=== PATIENT | male | born 1965 | race Caucasian/White ===

== ENCOUNTER → 2016-08-17 | Outpatient (CLI) | payer OTHER ==
[2016-08-17 09:36] LABS: BASO % 0.1 %; BASO ABS # 0.01 K/uL (0-0.2); COMPLETE YES; EOS % 1.6 %; HEMATOCRIT 47.2 % (42-52); IG% 0.3 %; LYMPH % 30.9 %; LYMPH ABS # 2.07 K/uL (1.2-3.4); MEAN CELL VOLUME 88.7 fL (80-100); MEAN CORPUSCULAR HEMOGLOBIN 30.8 pg (25-34); MEAN CORPUSCULAR HGB CONC 34.7 g/dl (32-36); MEAN PLATELET VOLUME 10.9 fL (7.4-10.4); MONO % 7.9 %; NEUT % 59.2 %; PLATELET COUNT 186 K/uL (130-400); RED BLOOD COUNT 5.32 M/uL (4.7-6.1)
--- NOTE | 2016-08-17 09:47 | DIAGNOSTIC IMAGING REPORT ---
RIGHT KNEE 3 VIEWS CLINICAL HISTORY: Bilateral knee pain. COMPARISON: None FINDINGS: Alignment of the right knee is anatomic. There is no fracture or joint effusion. Joint spaces are preserved. There is minimal osteophytosis of the right knee. IMPRESSION: 1. No acute fracture. 2. Preserved joint spaces with mild osteophytosis of the right knee. Electronically signed by: Mohamud Dubois M.D. 08/17/2016 9:45 AM Dictated Date/Time: 08/17/2016 9:45 AM
--- NOTE | 2016-08-17 09:48 | DIAGNOSTIC IMAGING REPORT ---
LEFT KNEE 3 VIEWS CLINICAL HISTORY: Bilateral knee pain. COMPARISON: None FINDINGS: Alignment of the left knee is anatomic. There is no joint effusion or fracture. Joint spaces are preserved. No osseous lesion is identified. IMPRESSION: No significant abnormality of the left knee. Electronically signed by: Mohamud Duobis M.D. 08/17/2016 9:46 AM Dictated Date/Time: 08/17/2016 9:45 AM
[2016-08-17 09:54] LABS: ESTIMATED AVERAGE GLUCOSE 131 mg/dl; HA1C FLAG Normal (Normal)
--- NOTE | 2016-08-17 09:57 | DIAGNOSTIC IMAGING REPORT ---
CHEST 2 VIEWS ROUTINE HISTORY: Atypical CHEST PAIN, SEND PT TO LAB NEXT COMPARISON: None. FINDINGS: The lungs are clear. Cardiac silhouette is normal in size. No pleural effusions. No pneumothorax. Mild anterior wedging within a lower thoracic spine vertebral body consistent with an old compression deformity. IMPRESSION: No acute process. Electronically signed by: Remi George M.D. 08/17/2016 9:54 AM Dictated Date/Time: 08/17/2016 9:42 AM
[2016-08-17 10:04] LABS: ALB/GLOB RATIO 1.4 (0.9-2); ALKALINE PHOSPHATASE 75 U/L (45-117); ALT/SGPT 32 U/L (12-78); AMYLASE 44 U/L (25-115); AST/SGOT 17 U/L (15-37); BLOOD UREA NITROGEN 14 mg/dl (7-18); BUN/CREATININE RATIO 12.4 (10-20); CALCIUM 9.3 mg/dl (8.5-10.1); CARBON DIOXIDE 30 mmol/L (21-32); CHLORIDE 106 mmol/L (98-107); CHOLESTEROL 203 mg/dl (0-200); GLUCOSE 141 mg/dl (70-99); POTASSIUM 4.6 mmol/L (3.5-5.1); SODIUM 141 mmol/L (136-145); TRIGLYCERIDES 138 mg/dl (0-150); VERY LOW DENSITY LIPOPROT CALC 28 mg/dl
[2016-08-17 10:08] LABS: CHOLESTEROL/HDL RATIO 5.2; HDL CHOLESTEROL 39 mg/dl; LDL CHOLESTEROL CALCULATED 136 mg/dl
== END | disposition home or self-care (01) ==
LOC: C.RAD 08:36
PROVIDERS: ATTEND Family Medicine
DX: M25.561 Pain in right knee (principal); M25.562 Pain in left knee; M51.34 Other intervertebral disc degeneration, thoracic region; R07.9 Chest pain, unspecified; R10.9 Unspecified abdominal pain; R73.01 Impaired fasting glucose

== ENCOUNTER 2023-12-18 07:12 | Inpatient (IN) ==
--- OUTSIDE RECORDS SUMMARY | 2023-12-18 07:20 | External Medical Summary ---
Author Name Unknown Address Unknown Organization [id number]:[facility]ATORY [facility] [place] - [address] [place] [address] Laboratory Report Ordering Provider Test Date Status HAIR KUHN 12/17/2023 14:54:06 Final Observation Date Value Abnormality Reference (Units ) Status TSH 12/17/2023 14:54:06 0.84 0.27-4.20 (uIU/mL) Final Performing Location [facility] - [address] [place] [address]
--- OUTSIDE RECORDS SUMMARY | 2023-12-18 07:20 | External Medical Summary | Summary of Care ---
Author Name Unknown Organization [facility] Address [address] [place] [address] Phone [phone] Care Team Providers Care Truck Technician Name Role Phone Marcelo Diaz MD Primary Care Provider [phone] Reason for Visit * Reason Comments Outpatient Testing Encounter Details Date Type Department Care Team (Late st Contact Info) Description 12/17/2023 3:00 PM EDT Laboratory Laboratory, [facility] [address] [place] [address] [facility] [address], [place] [id number] Blurred vision; Generalized weakness; Malaise and fatigue; Prediabetes; COVID-19 Allergies No known active allergiesdocumented as of this encounter (statuses as of 12/17/2023) Medications Medication Sig Dispensed Refills Start Date End Date Status oxyCODONE HCl 10 MG Tablet Take 1 Tablet by mouth. Active pantoprazole (PROTONIX) 20 MG TBEC Take by mouth. Active Gabapentin 600 MG Oral Tablet (Neurontin) Take 0.5 Tablets by mouth in the morning and 0.5 Tablets at noon and 0.5 Tablets before bedtime. 11/08/2019 Active Diclofenac Sodium 1 % External Gel apply 2 grams topically to affected area four times a day as directed 09/24/2020 Active Meloxicam 15 MG Oral Tablet Take 1 Tablet by mouth in the morning. for pain.. 30 Tablet 1 04/02/2023 Active documented as of this encounter (statuses as of 12/17/2023) Active Problems Problem Noted Date Diagnosed Date Change in stool 04/20/2017 Complex tear of medial meniscus of left knee 05/2014 Prediabetes 05/10/2014 Fissure, anal Bilateral knee pain Degenerative joint disease of low back documented as of this encounter (statuses as of 12/17/2023) Social History Tobacco Use Types Packs/Day Years Used Date Smoking Tobacco: Every Day Cigarettes 1 34 Started: 09/11/1979; Last attempted to quit: 09/10/2013 Passive Smoke Exposure: Current Smokeless Tobacco: Never Comments:began at age 17 Alcohol Use Standard Drinks/Week Comments Yes 0 (1 standard drink = 0.6 oz pur e alcohol) one or 2 a month PHQ-2 Answer Date Recorded PHQ Adult Total Score 9 11/04/2020 Hunger Vital Sign Answer Date Recorded Worried About Running Out of Food in the Last Ye ar Never true 07/25/2019 Ran Out of Food in the Last Year Never true 07/25/2019 Utilities Answer Date Recorded Do you have trouble paying y our heating, water, or electric bill? (Adult - for ages 18 years and over) Not on file 10/26/2023 Is your family able to pay t he heat, water, or electric bill? (Household - for ages 0-17 years) Not on file 10/26/2023 Does your family have access to good internet? (Household - for ages 0-17 years) Not on file 10/26/2023 Social Connections Answer Date Recorded How often do you feel lonely or isolated from those around you? (Adult - for ages 18 years and over) Not on file 10/26/2023 Sex and Gender Information Value Date Recorded Sex Assigned at Not on file Gender Identity Not on file Sexual Orientation Not on file Job Start Date Occupation Industry Not on file Not on file Not on file documented as of this encounter Plan of Treatment Pending Results Name Type Priority Associated Diagnoses Date /Time HEMOGLOBIN A1C Lab Routine Blurred vision Generalized weakness Malaise and fatigue Prediabetes 12/17/2023 2:54 PM EDT TSH WITH FREE T4 IF INDICATED Lab Routine Blurred vision Generalized weakness Malaise and fatigue 12/17/2023 2:54 PM EDT COMPREHENSIVE METABOLIC PANEL Lab Routine Blurred vision Generalized weakness COVID-19 Malaise and fatigue 12/17/2023 2:54 PM EDT MAGNESIUM Lab Routine Blurred vision Generalized weakness COVID-19 Malaise and fatigue 12/17/2023 2:54 PM EDT Scheduled Procedures Name Priority Associated Diagnoses Date/Ti me COLONOSCOPY FLEXIBLE PROXIMA L DIAGNOSTIC Recall Special screening for malignant neoplasms, colon Health Maintenance Due Date Last Done Comments Lipid Panel 1967 Pneumococcal Vaccine: Pediatrics (0 to 5 Years) and At-Risk Patients (6 to 64 Years) (1 of 2 - PCV) 09/19/1973 HIV Screening 09/19/1982 Hepatitis C Screening 09/19/1985 Hepatitis B Vaccine (1 of 3 - 19+ 3-dose series) 09/19/1986 Cologuard 09/19/2012 Fecal Occult Blood Test 09/19/2012 Sigmoidoscopy 09/19/2012 HbA1c 12/07/2015 12/06/2014 Lung Cancer Screening 09/19/2017 Zoster Vaccines (1 of 2) 09/19/2017 Depression Screening 11/04/2021 11/04/2020 COVID-19 Vaccine (1 - 2022-2 4 season) 2023 Influenza Vaccine (FLU shot) (#1) 2024 DTaP,Tdap,and Td Vaccines (2 - Td or Tdap) 11/26/2027 11/25/2017 (Declined) Colonoscopy 02/23/2029 02/23/2019 Colorectal Cancer Screening 02/23/2029 HPV (Gardasil) Vaccine Aged Out No lo nger eligible based on patient's age to complete this topic MENINGOCOCCAL (MENACTRA/MENVEO) Aged Out No longer eligible b ased on patient's age to complete this topic documented as of this encounter Medical Devices Not on filedocumented as of this encounter Visit Diagnoses Diagnosis Blurred vision Other specified visual disturbances Generalized weakness Other malaise and fatigue Malaise and fatigue Other malaise and fatigue Prediabetes Other abnormal glucose COVID-19 documented in this encounter Care Teams Truck Technician Relationship Specialty Start Date End Date Marcelo Diaz MD [address], [place] [id number] PCP - General Family Medicine 03/31/23 documented as of this encounter
--- OUTSIDE RECORDS SUMMARY | 2023-12-18 07:20 | External Medical Summary ---
Author Name Unknown Address Unknown Organization [id number]:[facility] [place] [address] [place] [address] Laboratory Report Ordering Provider Test Date Status HAIR KUHN 12/17/2023 14:54:06 Final Observation Date Value Abnormality Reference (Units ) Status HbA1C 12/17/2023 14:54:06 16.3 Above high normal 4. 0-5.6 (%) Final The use of HbA1c to monitor glycemic status is based on normal hemoglobin and HbA composition. This test should not be used in patients with abnormal hemoglobin that affects the half life of the red blood cell or the in vivo glycation rates. Glucose, estimated average 12/17/2023 14:54:06 421 Above high normal <126 (mg/dL) Tony faulkner Performing Location [facility] [place] [address] [place] [address]
--- OUTSIDE RECORDS SUMMARY | 2023-12-18 07:20 | External Medical Summary | Summary of Care ---
Author Name Unknown Organization [facility] Address [address] [facility] [place] [address] Phone [phone] Care Team Providers Care Radiation Control Specialist Name Role Phone Marcelo Diaz MD Primary Care Provider [phone] Reason for Visit * Reason Comments Acute Pt states that he escalante d a severe fatigue, COVID+ 2 weeks ago via home test, dry mouth, low energy, urinating frequently with increased thirst. Pt states that has been testing positive, blurred vision. Encounter Details Date Type Department Care Team (Late st Contact Info) Description 12/17/2023 2:20 PM EDT Office Visit [facility] [address] [place] [address] Lakisha Bonilla PAAjC [address], [place] [phone] Blurred vision*; Generalized weakness; COVID-19; Malaise and fatigue; Prediabetes Allergies No known active allergiesdocumented as of [...] Passive Smoke Exposure: Current Smokeless Tobacco: Never Tobacco Cessation:Ready to Q uit: Not Asked; Counseling Given: Not Answered Comments:began at age 17 Alcohol Use Standard [...] on file documented as of this encounter Last Filed Vital Signs Vital Sign Reading Time Taken Comments Blood Pressure 132/88 12/17/2023 2:17 PM EDT Pulse 118 12/17/2023 2:17 PM EDT Temperature 36.7 C (98.1 F) 12/17/2023 2:17 PM ED T Respiratory Rate 18 12/17/2023 2:17 PM EDT Oxygen Saturation 96% 12/17/2023 2:17 PM EDT Inhaled Oxygen Concentration - - Weight 104.1 kg (229 lb 6.4 oz) 12/17/2023 2:17 PM EDT Height 188 cm (6' 2") 12/17/2023 2:17 PM EDT Body Mass Index 29.45 12/17/2023 2:17 PM EDT documented in this encounter Progress Notes * Lakisha Bonilla PA-C - 12/17/2023 2:28 PM EDT Images from the original note were not included. History of Present Illness Remi Connelly is a 58 year old male that presents for Acute (Pt states that he had a severe fatigue, COVID+ 2 weeks ago via home test, dry mouth, low energy, urinating frequently with increased thirst. Pt states that has been testing positive, blurred vision. ) Having issues with how he feels A little over 2 weeks ago he started to be really tired He tested positive for covid this week Vision changed - now needs readers Tired Dry mouth Has a back injury - on gabapentin and oxycodone Woke with cramps in legs He was told he might be dehydrated - drinking water and gatorade This has made him have to urinate all the time. He was prediabetic a few years back Feels weak Lost 20 lbs in 2 weeks. Physical Exam Vitals: 12/17/23 1417 Temp: 36.7 C (98.1 F) Pulse: 118 Resp: 18 SpO2: 96% BP: 132/88 BMI: 29.44 BP Readings from Last 3 Encounters: 12/17/23 132/88 04/02/23 132/80 03/23/23 (!) 173/111 Wt Readings from Last 3 Encounters: 12/17/23 104.1 kg (229 lb 6.4 oz) 04/02/23 112 kg (247 lb) 11/04/20 113.3 kg (249 lb 12.8 oz) BMI Readings from Last 3 Encounters: 12/17/23 29.45 kg/m 04/02/23 31.29 kg/m 11/04/20 31.64 kg/m Ht Readings from Last 3 Encounters: 12/17/23 1.88 m (6' 2") 11/04/20 1.892 m (6' 2.5") 10/03/20 1.892 m (6' 2.5") General: alert, healthy, and no distress Head: Normocephalic, No masses, lesions, tenderness or abnormalities Eye Exam: PERRLA, extraocular movements intact, conjunctiva are pink and non- injected, sclera clear Ears: External ears normal, Canals clear, TM's Normal Nose: no mucosal erythema, no mucosal edema, no purulent discharge Oropharynx: no exudate, no erythema, lips, buccal mucosa, and tongue normal, and mucous membranes are moist Neck: supple, no adenopathy, no bruits, thyroid normal size, non-tender, without nodularity Heart: regular rate & rhythm, no murmur, and no gallops, s1 and s2 Lungs: chest symmetric with normal AP diameter, no chest deformities noted, no chest wall tenderness, lungs clear to auscultation Extremities: less than 2 second capillary refill, no joint deformities, effusion, or inflammation Skin: skin color, texture, turgor are normal, no rashes or significant lesions Assessment and Plan Blurred vision (Primary) - HEMOGLOBIN A1C; Future; Expected date: 12/17/2023 - TSH WITH FREE T4 IF INDICATED; Future; Expected date: 12/17/2023 - COMPREHENSIVE METABOLIC PANEL; Future; Expected date: 12/17/2023 - MAGNESIUM; Future; Expected date: 12/17/2023 Generalized weakness - HEMOGLOBIN A1C; Future; Expected date: 12/17/2023 - TSH WITH FREE T4 IF INDICATED; Future; Expected date: 12/17/2023 - COMPREHENSIVE METABOLIC PANEL; Future; Expected date: 12/17/2023 - MAGNESIUM; Future; Expected date: 12/17/2023 COVID-19 - supportive care, unclear if this is new or hje has been sick for the entire 2 weeks. - COMPREHENSIVE METABOLIC PANEL; Future; Expected date: 12/17/2023 - MAGNESIUM; Future; Expected date: 12/17/2023 Malaise and fatigue - HEMOGLOBIN A1C; Future; Expected date: 12/17/2023 - TSH WITH FREE T4 IF INDICATED; Future; Expected date: 12/17/2023 - COMPREHENSIVE METABOLIC PANEL; Future; Expected date: 12/17/2023 - MAGNESIUM; Future; Expected date: 12/17/2023 Prediabetes - HEMOGLOBIN A1C; Future; Expected date: 12/17/2023 Concern is for mare diabetes Patient has needle phobia so will get labs rather than finger stick - if finger stick was + he would need labs anyway Wrap-Up Time: I spent a total of 20-29 minutes (exact time 23 mins) on the date of service in preparation, delivery, and documentation of the care provided to Remi Connelly excluding any time spent in the performance of separately billed services. Lakisha Bonilla PA-C 12/17/2023 2:42 PM documented in this encounter Nursing Notes * Florence Holley LPN - 12/17/2023 2:17 PM EDT Remi Connelly is a 58 year old male who presents today for Chief Complaint Patient presents with Acute Pt states that he had a severe fatigue, COVID+ 2 weeks ago via home test, dry mouth, low energy, urinating frequently with increased thirst. Pt states that has been testing positive, blurred vision. documented in this encounter Plan of Treatment Pending Results [...] and fatigue 12/17/2023 2:54 PM EDT Scheduled Orders Name Type Priority Associated Diagnoses Orde r Schedule HEMOGLOBIN A1C Lab Routine Blurred vision Generalized weakness Malaise and fatigue Prediabetes Expected: 12/17/2023 (Approximate), Expires: 12/16/2024 TSH WITH FREE T4 IF INDICATED Lab Routine Blurred vision Generalized weakness Malaise and fatigue Expected: 12/17/2023 (Approximate), Expires: 12/16/2024 COMPREHENSIVE METABOLIC PANEL Lab Routine Blurred vision Generalized weakness COVID-19 Malaise and fatigue Expected: 12/17/2023 (Approximate), Expires: 12/16/2024 MAGNESIUM Lab Routine Blurred vision Generalized weakness COVID-19 Malaise and fatigue Expected: 12/17/2023 (Approximate), Expires: 12/16/2024 Scheduled Procedures Name Priority Associated Diagnoses Date/Ti [...] of this encounter Visit Diagnoses Diagnosis Blurred vision- Primary Other specified visual disturbances Generalized weakness Other malaise and fatigue COVID-19 Malaise and fatigue Other malaise and fatigue Prediabetes Other abnormal glucose documented in this encounter Care Teams Radiation Control Specialist Relationship Specialty Start Date End Date Marcelo Diaz MD [address] [address] PCP - General Family Medicine 03/31/23 documented as of this encounter
--- OUTSIDE RECORDS SUMMARY | 2023-12-18 07:20 | External Medical Summary | Summary of Care ---
Author Name Unknown Organization [facility] Address [address] [facility] [address] Phone [phone] Care Team Providers Care Lens Cutter Name Role Phone Marcelo Diaz MD Primary Care Provider [phone] Encounter Details Date Type Department Care Team (Late st Contact Info) Description 08/20/2023 Orders Only Radiology [facility] [facility] [address] [facility] [place] [address] Requisition, External Radiology [address] [facility] [place] [address] Spinal stenosis of lumbar region with neurogenic claudication*; Vertebrogenic low back pain Allergies No known active allergiesdocumented as of this encounter (statuses as of 08/20/2023) Medications Medication Sig Dispensed Refills Start Date End Date Status oxyCODONE HCl 10 MG Tablet Take 1 Tablet by mouth. 0 Active pantoprazole (PROTONIX) 20 MG TBEC Take by mouth. 0 Active Gabapentin 600 MG Oral Tablet (Neurontin) Take 0.5 Tablets by mouth in the morning and 0.5 Tablets at noon and 0.5 Tablets before bedtime. 0 11/08/2019 Active Diclofenac Sodium 1 % External Gel apply 2 grams topically to affected area four times a day as directed 0 09/24/2020 Active Meloxicam 15 MG Oral Tablet Take 1 Tablet by mouth in the morning. for pain.. 30 Tablet 1 04/02/2023 Active documented as of this encounter (statuses as of 08/20/2023) Active Problems Problem Noted Date Diagnosed Date Change in stool 04/20/2017 Complex tear of medial meniscus of left knee 05/2014 Prediabetes 05/10/2014 Fissure, anal Bilateral knee pain Degenerative joint disease of low back documented as of this encounter (statuses as of 08/20/2023) Social History Tobacco Use Types Packs/Day Years [...] in the Last Year Never true 07/25/2019 Sex and Gender Information Value Date Recorded Sex Assigned at Not on file Gender Identity Not on file Sexual Orientation Not on file Job Start Date Occupation Industry Not on file Not on file Not on file documented as of this encounter Plan of Treatment Pending Results Name Type Priority Associated Diagnoses Date /Time XR LS SPINE FLEX AND EXT VIEWS ONLY Medical Imaging Routine Spinal stenosis of lumbar region with neurogenic claudication Vertebrogenic low back pain 08/20/2023 11:17 AM EDT Scheduled Procedures Name Priority Associated Diagnoses Date/Ti me COLONOSCOPY FLEXIBLE PROXIMA L DIAGNOSTIC Recall Special screening for malignant neoplasms, colon Health Maintenance Due Date Last Done Comments Lipid Panel 1965 Pneumococcal Vaccine: Pediatrics (0 to 5 Years) and At-Risk Patients (6 to 64 Years) (1 of 2 - PCV) 09/19/1973 HIV Screening 09/19/1982 Hepatitis C Screening 09/19/1985 Hepatitis B (1 of 3 - 19+ 3-dose series) 09/19/1986 Cologuard 09/19/2012 Fecal Occult Blood Test 09/19/2012 Sigmoidoscopy 09/19/2012 HbA1c 12/07/2015 12/06/2014 LUNG CANCER SCREENING - USE SMARTSET [id number] 09/19/2017 Zoster Vaccines (1 of 2) 09/19/2017 Depression Screening 11/04/2021 11/04/2020 COVID-19 Vaccine (1 - 2022-2 4 season) 2023 Influenza Vaccine (FLU shot) (Season Ended) 2024 DTaP,Tdap,and Td Vaccines (2 - Td or Tdap) 11/26/2027 11/25/2017 (Declined) Colonoscopy 02/23/2029 02/23/2019 Colorectal Cancer Screening 02/23/2029 GARDASIL-HPV IMMUNIZATION SERIES Aged Out No longer eligible b ased on patient's age to complete this topic MENINGOCOCCAL (MENACTRA/MENVEO) Aged Out No longer eligible b ased on patient's age to complete this topic documented as of this encounter Medical Devices Not on filedocumented as of this encounter Visit Diagnoses Diagnosis Spinal stenosis of lumbar region with neurogenic claudication- Primary Spinal stenosis, lumbar region, with neurogenic claudication Vertebrogenic low back pain documented in this encounter Care Teams Lens Cutter Relationship Specialty Start Date End Date Marcelo Diaz MD [address] [place] [address] PCP - General Family Medicine 03/31/23 documented as of this encounter
--- OUTSIDE RECORDS SUMMARY | 2023-12-18 07:20 | External Medical Summary ---
Author Name Unknown Address Unknown Organization K01:[facility] - [address] [place] [address] Laboratory Report Ordering Provider Test Date Status HAIR KUHN 12/17/2023 14:54:06 Final Observation Date Value Abnormality Reference (Units ) Status Magnesium 12/17/2023 14:54:06 3.0 Above high normal 1. 5-2.6 (mg/dL) Final Performing Location [facility] - [address] [place] [address]
--- OUTSIDE RECORDS SUMMARY | 2023-12-18 07:20 | External Medical Summary ---
Author Name Unknown Address Unknown Organization [id number]:[facility]ORY [facility] [place] [address] [place] [address] Laboratory Report Ordering Provider Test Date Status HAIR KUHN 12/17/2023 14:54:06 Final Observation Date Value Abnormality Reference (Units ) Status BUN 12/17/2023 14:54:06 35 Above high normal 6-20 (mg/dL) Final Creatinine 12/17/2023 14:54:06 1.7 Above high normal 0.6-1.2 (mg/dL) Final Glomerular filtration rate/1.73 sq M.predicted [Volume Rate/Area] in Serum, Plasma or Blood by Creatinine-based formula (CKD-EPI) 12/17/2023 14:54:06 45 Below low normal >=60 (mL/min) Final eGFR is calculated based on the CKD-EPI 2020 equation. Sodium 12/17/2023 14:54:06 134 Below low normal 135 -146 (mmol/L) Final Potassium 12/17/2023 14:54:06 5.5 Above high normal 3. 5-5.1 (mmol/L) Final Cl 12/17/2023 14:54:06 87 Below low normal 98- 107 (mmol/L) Final CO2 12/17/2023 14:54:06 23 22-32 (mmo l/L) Final Anion gap 12/17/2023 14:54:06 24 Above high normal 7- 15 (mmol/L) Final Glucose 12/17/2023 14:54:06 1322 Above upper panic li mits 70-120 (mg/dL) Final Results rechecked. Albumin 12/17/2023 14:54:06 4.9 3.8-5.0 (g /dL) Final AST (Aspartate aminotransferase) 12/17/2023 14:54:06 29 10-50 (U/L) Fin al Alk Phos 12/17/2023 14:54:06 141 Above high normal 35 -130 (U/L) Final Bilirubin, Total 12/17/2023 14:54:06 0.7 <=1 .2 (mg/dL) Final Calcium 12/17/2023 14:54:06 10.8 Above high normal 8. 4-10.2 (mg/dL) Final Protein 12/17/2023 14:54:06 7.4 6.0-8.3 (g /dL) Final ALT (Alanine aminotransferase) 12/17/2023 14:54:06 55 Above high normal 10-50 (U/L) Final Performing Location LABORATORY [facility] [place] - [address] [facility] [address]
[2023-12-18] MEDS: SODIUM CHLORIDE 0.9% 1,000 ML IV STA (07:30)
--- NOTE | 2023-12-18 08:17 | XRay Report ---
XR chest 1V portable CLINICAL HISTORY: weakness, cough x several wks COMPARISON STUDY: Chest radiograph August 17, 2016. FINDINGS: Lung volumes are normal. Lungs are clear. There is no pneumothorax or pleural effusion. Car diac size is normal. Mediastinal contours are normal. There is no evidence for pulmonary edema. IMPRESSION: No acute cardiopulmonary findings. ACT 112: Negative or not required by law. Electronically signed by: Mohamud Dubois M.D. 12/18/2023 8:16 AM
[2023-12-18 08:20] LABS: Appearance Urine Clear (Clear); Bilirubin Urine Negative (Negative); Blood Urine Negative (Negative); Color Urine Yellow; Glucose Urine UA 3+ (Negative); Ketones Urine 1+ (Negative); Leukocyte Esterase Urine Negative (Negative); Nitrite Urine Negative (Negative); Protein Urine Negative (Negative); Specific Gravity Urine 1.037 (1.000-1.030); Urobilinogen Urine Negative (Negative)
[2023-12-18] MEDS: dilTIAZem HCl 5 MG/ML 5 ML VIAL IV STA (08:30)
[2023-12-18 08:32] LABS: Basophils # (auto) 0.03 K/uL (0.00-0.20); Basophils % (auto) 0.2 %; Eosinophils # (auto) 0.04 K/uL (0.00-0.50); Eosinophils % (auto) 0.3 %; Hematocrit (blood only) 54.4 % (42.0-52.0); Hemoglobin 17.2 g/dl (14.0-18.0); Immature Granulocytes # (auto) 0.05 K/uL (0.01-0.20); Immature Granulocytes % (auto) 0.4 %; Lymphocytes # (auto) 2.89 K/uL (1.20-3.40); Lymphocytes % (auto) 22.2 %; Mean Corpuscular Hemoglobin 29.4 pg (25.0-34.0); Mean Corpuscular Hgb Conc 31.6 g/dL (32.0-36.0); Monocytes # (auto) 0.71 K/uL (0.11-0.59); Monocytes % (auto) 5.4 %; Neutrophils # (auto) 9.31 K/uL (1.40-6.50); Neutrophils % (auto) 71.5 %; Platelet Count 206 K/uL (130-400); RDW Coefficient of Variation 12.4 % (11.5-14.5); RDW Standard Deviation 42.5 fL (36.4-46.3); Red Blood Count 5.85 M/uL (4.70-6.10); White Blood Count 13.03 K/ul (4.8-10.8)
[2023-12-18 08:51] LABS: Estimated Average Glucose 395 mg/dl; Hemoglobin A1C 15.4 % (4.5-5.6)
[2023-12-18] MEDS: STAT IV Infusion **Titration per Protocol STA ×2 (08:53→09:59)
--- NOTE | 2023-12-18 08:53 | Emergency Department Note ---
ED Provider Note History of Present Illness Chief Complaint: Illness Stated Complaint: COVID+,NEWLY DIAGNOSED WITH DIABETES Time Seen by Provider: 12/18/23 07:23 58-year-old male who presents to the emergency department with his for evaluation of abnormal lab work. The patient reports that he has been feeling sick now for the past month. With progressively worsening symptoms, he did follow-up with his PCP yesterday, and had lab work ordered and drawn. He was contacted this morning because he had a BSG of 1000. He was instructed to come to the emergency department for further evaluation. The patient reports notable increasing thirst and frequent urination. His reports that [place], and had to stop every few minutes because he had to urinate so much. Patient reports fatigue as well. He denies any chest pain, shortness of breath, nausea or vomiting. The patient reports that with his symptoms, he did a home COVID test that was positive 5 days ago. Home Medications Medication Instructions Recorded Confirmed Type gabapentin 600 mg tablet 300 mg PO HS 12/18/23 12/18/23 History oxycodone 15 mg tablet 15 mg PO QID PRN Pain 12/18/23 12/18/23 History Allergies Allergy/AdvReac Type Severity Reaction Status Date / Time No Known Allergies Allergy Unknown Verified 12/18/23 09:37 Past Med/Surg History Problem List (Updated 12/18/23 @ 10:08 by Poncho Ballesteros) Elevated troponin I level (Acute) Acute kidney injury (Acute) New onset type 2 diabetes mellitus (Acute) Atrial fibrillation with rapid ventricular response (Acute) Medical History Chronic back pain Surgical History No significant past surgical history Social History (Updated 12/18/23 @ 08:48 by Poncho Ballesteros) Smoking Status: Never smoker Second Hand Exposure: No; Do You Dip or Chew Tobacco: No; Tobacco Cessation Education Requested by Patient: No Hx Alcohol Use: No Hx Substance Use: No Preferred Language: Slovenian Communication Ability: Effective Pension Administrator Required: No Beliefs That Will Affect Care: None marital status: Current Living Situation: Spouse current occupational status: employed Other Information That Helps Us Care for You: No Feels Safe at Home: Yes Safety Concerns: Feels Safe At This Time Assistive Devices: None Physical Exam Vital Signs Vital Signs - 24 hr 12/18/23 07:15 12/18/23 07:40 12/18/23 08:03 Temperature 36.1 C L Temperature Source Temporal Artery Scan Pulse Rate 108 H 194 H 167 H Pulse Rhythm Respiratory Rate 18 18 Blood Pressure 135/86 150/99 H Blood Pressure Mean 102 108 Pulse Oximetry 95 93 Oxygen Delivery Method Sepsis Recent Fever Within 48 Hours No Sepsis New/Unexplained Change in Mental Status N/A Sepsis Action Taken by Nursing No Action Required 12/18/23 08:05 12/18/23 08:30 12/18/23 08:40 Temperature Temperature Source Pulse Rate 148 H 146 H 127 H Pulse Rhythm Irregular Respiratory Rate 20 15 12 Blood Pressure 121/95 131/98 Blood Pressure Mean 103 107 Pulse Oximetry 93 90 Oxygen Delivery Method Room Air Sepsis Recent Fever Within 48 Hours Sepsis New/Unexplained Change in Mental Status Sepsis Action Taken by Nursing 12/18/23 08:45 12/18/23 08:55 12/18/23 09:30 Temperature Temperature Source Pulse Rate 146 H 144 H 143 H Pulse Rhythm Respiratory Rate 16 12 20 Blood Pressure 125/103 H 120/95 125/93 Blood Pressure Mean 119 109 116 Pulse Oximetry 96 98 Oxygen Delivery Method Sepsis Recent Fever Within 48 Hours Sepsis New/Unexplained Change in Mental Status Sepsis Action Taken by Nursing 12/18/23 09:45 12/18/23 09:50 Temperature Temperature Source Pulse Rate 133 H 132 H Pulse Rhythm Respiratory Rate 18 15 Blood Pressure 112/94 115/94 Blood Pressure Mean 95 97 Pulse Oximetry 94 94 Oxygen Delivery Method Sepsis Recent Fever Within 48 Hours Sepsis New/Unexplained Change in Mental Status Sepsis Action Taken by Nursing CONSTITUTIONAL: Healthy and well nourished. Patient appears in moderate discomfort. HEENT: Normocephalic, atraumatic. Pupils equal, round and reactive. Patient appears dehydrated. No scleral icterus or conjunctival injection. NECK: Full active range of motion without discomfort. LYMPHATICS: No cervical chain adenopathy. RESPIRATORY: Clear to auscultation bilaterally with no wheezing, crackles, rhonchi or stridor. CARDIOVASCULAR: Irregular rate and rhythm with no murmurs, rubs or gallops. GASTROINTESTINAL: Bowel sounds present in all quadrants. MUSCULOSKELETAL: Full range of motion of all joints without discomfort. INTEGUMENTARY: No rash or other significant dermatologic conditions noted. HEMATOLOGIC: No ecchymosis or petechiae. PSYCHIATRIC: Positive affect. NEUROLOGIC: No focal neurologic deficits noted. Course Course Patient history and physical exam were performed. Nurses notes reviewed. Vital signs were reviewed from triage, showing an elevated heart rate of 148. Patient was not hypotensive, hypoxic or febrile. Radial pulse was palpated, was irregular and seem to be about half the rate of what the monitor was showing. IV access was established, and labs are drawn. The patient was hydrated with a liter normal saline. An ECG was performed and repeated, showing atrial fibrillation with rapid ventricular response around 150 bpm. Patient was placed on monitoring engineer. I did review ECG studies with Dr. Poole, ED attending physician, who recommended administering IV Cardizem bolus with drip. Orders were entered. A portable chest x-ray was performed and was normal. Further review of labs shows an elevated white count of over 13,000 with no neutrophilic shift or bandemia. Urinalysis shows 3+ glucosuria, 1+ ketonuria, and no hematuria or signs of infection. CMP was delayed, but eventually resulted showing random glucose of 1030. Lactate is also elevated at 3.5. Hemoglobin A1c is 15.4. The patient is also hypomagnesemic, hypocalcemic, and also has an elevated AST of 41. Troponin is also mildly elevated at 28. CO2 is normal, and the patient does not have any significant ketonuria. A Bio[employer] PCR respiratory panel was negative. Dr. Poole recommended IV insulin bolus and drip, and consultation with the hospitalist service. Patient was advised of his findings. The case was then further discussed with our Server Service Assistant, as well as the [facility] hospitalist team (Dr. Mims) for admission. Please see hospitalist dictations for further treatment and final disposition. Administered Medications Diltiazem HCl (Diltiazem Hcl 180 Mg Capcr) 180 mg PO QAM [facility] Stop: 01/17/24 14:29 Last Admin: 12/18/23 15:24 Dose: 180 mg Documented By: MUSHTAQ Diltiazem HCl 125 mg/ Dextrose 125 mls @ 10 mls/hr IV .[id number] BUSHRA; Protocol Stop: 01/17/24 08:29 Last Titration: 12/18/23 15:30 Dose: 10 mg/hr, 10 mls/hr Documented By: MUSHTAQ Co-signed By: EMILY Titration: 12/18/23 10:39 Dose: 15 mg/hr, 15 mls/hr Documented By: HENRY Co-signed By: JIN Titration: 12/18/23 10:02 Dose: 10 mg/hr, 10 mls/hr Documented By: HENRY Co-signed By: JIN Admin: 12/18/23 08:54 Dose: 5 mg/hr, 5 mls/hr Documented By: HENRY Co-signed By: JIN Insulin Human Regular 250 (units/ Sodium Chloride) 250 mls @ 9.4 mls/hr IV .Q24H BUSHRA; Protocol Stop: 01/17/24 09:14 Last Titration: 12/18/23 16:40 Dose: 9.4 units/hr, 9.4 mls/hr Documented By: MUSHTAQ Co-signed By: EMERSON Titration: 12/18/23 15:28 Dose: 9.4 units/hr, 9.4 mls/hr Documented By: MUSHTAQ Co-signed By: EMERSON Titration: 12/18/23 14:30 Dose: 11.8 units/hr, 11.8 mls/hr Documented By: MUSHTAQ Co-signed By: EMERSON Titration: 12/18/23 13:30 Dose: 11.8 units/hr, 11.8 mls/hr Documented By: MUSHTAQ Co-signed By: EMERSON Admin: 12/18/23 09:58 Dose: 9.8 units/hr, 9.8 mls/hr Documented By: JIN Co-signed By: HENRY Heparin Sodium/Dextrose (Heparin Sodium/Dextrose) 25,000 units in 500 mls @ 20 mls/hr IV .Q24H BUSHRA; Protocol Stop: 12/18/23 19:00 Last Admin: 12/18/23 12:37 Dose: 1,000 units/hr, 20 mls/hr Documented By: MUSHTAQ Co-signed By: EMERSON Insulin Aspart (Insulin Aspart Per Unit Charge) 0 units SC ACHS [facility] Stop: 01/17/24 16:29 Last Admin: 12/18/23 16:40 Dose: Not Given Documented By: MUSHTAQ Oxycodone HCl (Oxycodone Hcl Ir 5 Mg Tab (Immediate Release)) 15 mg PO QID PRN PRN Reason: Pain Stop: 01/01/24 13:12 Last Admin: 12/18/23 15:03 Dose: 15 mg Documented By: MUSHTAQ Discontinued Medications Diltiazem HCl (Diltiazem Hcl 5 Mg/Ml 5 Ml Vial) 15 mg IV NOW STA Stop: 12/18/23 08:24 Last Admin: 12/18/23 08:30 Dose: 15 mg Documented By: HENRY Co-signed By: JIN Heparin Sodium/Dextrose (Heparin Iv Adult Wt-Based Low-Dose *No* Initial Bolus Protocol) 1 each IV Q15M BUSHRA; Protocol Stop: 12/18/23 11:45 Last Admin: 12/18/23 12:42 Dose: Not Given Documented By: Admin: 12/18/23 12:42 Dose: Not Given Documented By: Admin: 12/18/23 12:42 Dose: Not Given Documented By: Admin: 12/18/23 12:42 Dose: Not Given Documented By: Admin: 12/18/23 12:37 Dose: Not Given Documented By: MUSHTAQ Heparin Sodium/Dextrose (Heparin 26884 Unit/500 Ml D5w) Confirm Administered Dose 25,000 units IV .STK-MED ONE Stop: 12/18/23 11:31 Last Admin: 12/18/23 12:38 Dose: Not Given Documented By: MUSHTAQ Sodium Chloride (Nss) 1,000 mls @ 999 mls/hr IV .Q1H1M STA Stop: 12/18/23 08:38 Last Infusion: 12/18/23 08:36 Dose: Infused Documented By: Admin: 12/18/23 07:30 Dose: 999 mls/hr Documented By: HENRY Sodium Chloride (Nss) 1,000 mls @ 75 mls/hr IV .[id number] BUSHAR Stop: 01/17/24 12:22 Last Infusion: 12/18/23 15:30 Dose: Infused Documented By: Admin: 12/18/23 12:37 Dose: 75 mls/hr Documented By: MUSHTAQ Sodium Chloride (1/2 Nss) 1,000 mls @ 100 mls/hr IV .Q10H BUSHRA Stop: 01/17/24 14:44 Last Admin: 12/18/23 15:33 Dose: 100 mls/hr Documented By: MUSHTAQ Insulin Human Regular (Novolin-R Bolus From Bag) 10 units IV ONE ONE Stop: 12/18/23 09:46 Last Admin: 12/18/23 09:59 Dose: 10 units Documented By: JIN Co-signed By: HENRY De La Garza (Stat Iv Infusion Titration Per Protocol) 1 each N/A NOW STA Stop: 12/18/23 08:24 Last Admin: 12/18/23 08:53 Dose: Not Given Documented By: HENRY De La Garza (Dka Goal Range 150-250 Mg/Dl) 1 each N/A ONE ONE Stop: 12/18/23 09:11 Last Admin: 12/18/23 09:59 Dose: Not Given Documented By: JIN De La Garza (Stat Iv Infusion Titration Per Protocol) 1 each N/A NOW STA Stop: 12/18/23 09:11 Last Admin: 12/18/23 09:59 Dose: Not Given Documented By: JIN Medical Decision Making Medical Records Attestation: I reviewed the patient's medical records. Home Medications was personally reviewed by me Laboratory Data Attestation: I reviewed the patient's lab results. 12/18/23 07:50 12/18/23 15:16 Lab Results 12/18/23 12/18/23 12/18/23 Range/Units 07:50 07:55 08:35 WBC 13.03 H (4.8-10.8) K/ul RBC 5.85 (4.70-6.10) M/uL Hgb 17.2 (14.0-18.0) g/dl Hct 54.4 H (42.0-52.0) % MCV 93.0 (80.0-100.0) fL MCH 29.4 (25.0-34.0) pg MCHC 31.6 L (32.0-36.0) g/dL RDW Std Deviation 42.5 (36.4-46.3) fL RDW Coeff of Vahid 12.4 (11.5-14.5) % Plt Count 206 (130-400) K/uL MPV 13.0 H (9.4-12.4) fL Immature Gran % (Auto) 0.4 % Neut % (Auto) 71.5 % Lymph % (Auto) 22.2 % [place] % (Auto) 5.4 % Eos % (Auto) 0.3 % Baso % (Auto) 0.2 % Neut # (Auto) 9.31 H (1.40-6.50) K/uL Lymph # (Auto) 2.89 (1.20-3.40) K/uL [place] # (Auto) 0.71 H (0.11-0.59) K/uL Eos # (Auto) 0.04 (0.00-0.50) K/uL Baso # (Auto) 0.03 (0.00-0.20) K/uL Immature Gran # (Auto) 0.05 (0.01-0.20) K/uL PT 10.5 (9.0-12.0) Seconds INR 1.0 (0.9-1.1) Sodium 142 (136-145) mmol/L Potassium 5.2 H (3.5-5.1) mmol/L Chloride 93 L (98-107) mmol/L Carbon Dioxide 22 (21-32) mmol/L Anion Gap 27 H (3-11) BUN 47 H (6-23) mg/dl Creatinine 2.23 H (0.6-1.4) mg/dl Est Cr Clr Drug Dosing 43.0 ml/min Est GFR ( Amer) 36.8 ml/min Est GFR (Non-Af Amer) 31.8 ml/min BUN/Creatinine Ratio 21.1 H (10-20) Glucose 1030 H* (70-99(Fasting)) mg/dl Estimat Average Glucose 395 mg/dl Hemoglobin A1c 15.4 H (4.5-5.6) % Lactate 3.5 H* (0.4-2.0) mmol/L Calcium 10.7 H (8.6-10.3) mg/dl Magnesium 3.0 H (1.7-2.4) mg/dl Total Bilirubin 0.7 (0.2-1.0) mg/dl AST 41 H (13-39) U/L ALT 50 (7-52) U/L Alkaline Phosphatase 125 H (34-104) U/L Troponin I High Sens 28.0 H (0-20) pg/ml Total Protein 7.7 (6.0-8.3) gm/dl Albumin 4.7 (3.4-5.0) gm/dl Globulin 3.0 (2.5-4.0) gm/dl Albumin/Globulin Ratio 1.6 (0.9-2) TSH 1.119 (0.300-4.500) uIu/ml Urine Color Yellow Urine Appearance Clear (Clear) Urine pH 5.0 (4.5-7.5) Ur Specific [place] 1.037 H (1.000-1.030) Urine Protein Negative (Negative) Urine Glucose (UA) 3+ H (Negative) Urine Ketones 1+ H (Negative) Urine Blood Negative (Negative) Urine Nitrite Negative (Negative) Urine Bilirubin Negative (Negative) Urine Urobilinogen Negative (Negative) Ur Leukocyte Esterase Negative (Negative) Adenovirus (PCR) Not Detected (NotDetected) B. pertussis DNA (PCR) Not Detected (NotDetected) B.parapertussis DNA PCR Not Detected (NotDetected) C. pneumoniae DNA (PCR) Not Detected (NotDetected) Coronavirus OC43 (PCR) Not Detected (NotDetected) Coronavirus HKU1 (PCR) Not Detected (NotDetected) Coronavirus 229E (PCR) Not Detected (NotDetected) SARS-CoV-2 (PCR) Not Detected (NotDetected) Coronavirus NL63 (PCR) Not Detected (NotDetected) Human Metapneumovir PCR Not Detected (NotDetected) Influenza Type A (PCR) Not Detected (NotDetected) Influenza Type B (PCR) Not Detected (NotDetected) M. pneumoniae (PCR) Not Detected (NotDetected) Parainfluenza 1 (PCR) Not Detected (NotDetected) Parainfluenza 2 (PCR) Not Detected (NotDetected) Parainfluenza 3 (PCR) Not Detected (NotDetected) Parainfluenza 4 (PCR) Not Detected (NotDetected) RSV (PCR) Not Detected (NotDetected) Entero/Rhino (PCR) Not Detected (NotDetected) Imaging Data Attestation: I personally reviewed and interpreted this imaging study as follows: My Impression: My interpretation of a portable chest x-ray does not show any consolidations or pneumothorax. Radiologist's Impression: Chest X-Ray 12/18/23 07:38 XR chest 1V portable CLINICAL HISTORY: weakness, cough x several wks COMPARISON STUDY: Chest radiograph August 17, 2016. FINDINGS: Lung volumes are normal. Lungs are clear. There is no pneumothorax or pleural effusion. Cardiac size is normal. Mediastinal contours are normal. There is no evidence for pulmonary edema. IMPRESSION: No acute cardiopulmonary findings. ACT 112: Negative or not required by law. Electronically signed by: Mohamud Dubois M.D. 12/18/2023 8:16 AM ECG Data Attestation: I personally reviewed and interpreted this ECG as follows: Indication: + tachycardia and + weakness Rate (beats per minute): 150 Rhythm: + atrial fibrillation (Rapid ventricular response) ECG Intervals/blocks: + Normal QRS and + Normal MT ECG [place]: + Normal ECG ST segments: + Normal ST segments Comparison ECG Date: from (07/12/2019) Additional Comments: New onset atrial fibrillation with rapid ventricular response MDM Narrative Cardiac monitoring: An order was placed for continuous cardiac monitoring. The monitor shows a rate of 150 with atrial fibrillation with rapid ventricular response. hall monitor history was reviewed throughout the evaluation, and no dysrhythmias were noted. See ED Course section for further details of today's visit. The patient referred to the emergency department with a markedly elevated random glucose level. The patient has had symptoms now for several weeks. On today's examination, he was also found to be in atrial fibrillation with rapid ventricular response. The patient did require IV Cardizem with bolus for rate control. Glucose was repeated at 1030. The patient was also administered IV insulin with bolus. Patient also has other concerning labs, including acute kidney injury and elevated troponin, although his ECG does not show any evidence for ST elevation or ischemic changes. Lactate is also elevated, however I do not suspect sepsis. The case was discussed with Dr. Poole, ED team physician, as well as Dr. Mims, [facility] hospitalist, for further admission and management. Impression Atrial fibrillation with rapid ventricular response, New onset type 2 diabetes mellitus, Acute kidney injury, Elevated troponin I level Critical Care Time Critical Care Time: Yes Total Critical Care Time: 40 I have personally spent greater than 30 minutes (40 minutes) of critical care time in the direct management of this patient. This includes bedside care, interpretation of diagnostic studies, and testing, discussion with consultants, patient, and family members, and other required patient management activities. This 40 minutes is in excess of all separately billable procedures. Discharge Plan Visit Data Chief Complaint: Illness Stated Complaint: COVID+,NEWLY DIAGNOSED WITH DIABETES ED Provider: Octavio Poole ED Midlevel Provider: Poncho Ballesteros Discharge Problem: Atrial fibrillation with rapid ventricular response, New onset type 2 diabetes mellitus, Acute kidney injury, Elevated troponin I level Patient Disposition: Admitted As Inpatient Discharge Instructions Interventions: ED Discharge Assessment Last Done: 12/18/23 12:09
[2023-12-18 08:54] LABS: Prothrombin Time 10.5 Seconds (9.0-12.0)
[2023-12-18] MEDS: dilTIAZem HCL 125 MG in DEXTROSE 5% 100 ML IV SCH (08:54)
[2023-12-18 09:07] LABS: Adenovirus PCR Not Detected (NotDetected); Bordetella parapertussis PCR Not Detected (NotDetected); Bordetella pertussis PCR Not Detected (NotDetected); Chlamydia pneumoniae PCR Not Detected (NotDetected); Coronavirus 229E PCR Not Detected (NotDetected); Coronavirus CoV-2 (COVID19)PCR Not Detected (NotDetected); Coronavirus HKU1 PCR Not Detected (NotDetected); Coronavirus NL63 PCR Not Detected (NotDetected); Coronavirus OC43PCR Not Detected (NotDetected); Human Metapneumovirus PCR Not Detected (NotDetected); Influenza A PCR Not Detected (NotDetected); Influenza B PCR Not Detected (NotDetected); Mycoplasma pneumoniae PCR Not Detected (NotDetected); Parainfluenza Virus 1 PCR Not Detected (NotDetected); Parainfluenza Virus 2 PCR Not Detected (NotDetected); Parainfluenza Virus 3 PCR Not Detected (NotDetected); Parainfluenza Virus 4 PCR Not Detected (NotDetected); Respiratory Syncytial VirusPCR Not Detected (NotDetected); Rhinovirus/Enterovirus PCR Not Detected (NotDetected)
[2023-12-18 09:11] LABS: Albumin Globulin Ratio 1.6 (0.9-2); Albumin Level 4.7 gm/dl (3.4-5.0); BUN Creatinine Ratio 21.1 (10-20); Bilirubin,Total 0.7 mg/dl (0.2-1.0); Calcium 10.7 mg/dl (8.6-10.3); Est GFR (African American) 36.8 ml/min; Est GFR (Non-African American) 31.8 ml/min; Potassium 5.2 mmol/L (3.5-5.1); Thyroid Stimulating Hormone 1.119 uIu/ml (0.300-4.500); Total Protein 7.7 gm/dl (6.0-8.3)
[2023-12-18] MEDS: INSULIN REGULAR 250 UNITS in SODIUM CHLORIDE 0.9% 247.5 ML IV SCH (09:58)
[2023-12-18] MEDS: DKA GOAL RANGE 150-250 mg/dl ONE (09:59)
[2023-12-18] MEDS: NovoLIN-R BOLUS FROM BAG IV ONE (09:59)
--- NOTE | 2023-12-18 11:56 | Electrocardiogram Report ---
Test Reason : Blood Pressure : */* mmHG Vent. Rate : 151 BPM Atrial Rate : * BPM P-R Int : * ms QRS Dur : 96 ms QT Int : 282 ms P-R-T Axes : * -36 87 degrees QTcB Int : 446 ms Atrial fibrillation with rapid ventricular response Left axis deviation Abnormal ECG When compared with ECG of 12-Jul-2019 09:07, Atrial fibrillation has replaced Sinus rhythm Vent. rate has increased by 88 bpm Confirmed by Waldemar Schaefer ([id number]) on 12/18/2023 11:56:34 AM Referred By: REFERRED SELF Confirmed By: Waldemar Schaefer
--- NOTE | 2023-12-18 12:03 | History & Physical Report ---
Date of Service December 18, 2023 Assessment & Plan (1) Atrial fibrillation with rapid ventricular response: (2) New onset type 2 diabetes mellitus: (3) Elevated troponin I level: (4) Acute kidney injury: Plan: 55-year-old very pleasant male with history of prediabetes, chronic back pain, presenting with fatigue x 2 weeks Hyperglycemia Possible DKA versus HHS New onset diabetes, A1c 15 Positive urine ketones Serum ketone not available in our laboratory Serum osmolality pending Check VBG Continue insulin drip Pharmacy glycemic control consult Repeat lactic acid at 2 PM Will need diabetic education consult Needs to be established with outpatient endocrinology service No other signs of infection at this point except for recent COVID infection Atrial fibrillation RVR, new onset Likely secondary to underlying hyperglycemia crisis Continue with Cardizem drip CHADSVASC score 1, start heparin drip low-dose no bolus Check echocardiogram Monitor and replace electrolytes Cardiology consult Acute kidney injury Baseline 1.7 Currently 2.2 Likely prerenal etiology Continue IV NSS Renal ultrasound Electrolyte abnormalities Mild hyperkalemia, hypercalcemia, hypermagnesemia Repeat levels at 2 PM Continue IV fluids Mild troponin elevation 20, 24, third troponin pending Likely from demand ischemia from A-fib RVR Echocardiogram pending Chronic back pain On oxycodone 15 mg every 4 hours Gabapentin 300 mg at bedtime Patient would like to wean off from pain meds Follows with pain management clinic DVT prophylaxis on heparin drip CODE STATUS Full code Disposition lives at home with family History of Present Illness Chief Complaint: Fatigue x 2 weeks Primary Care Provider: Lakisha Bonilla PA-C 55-year-old very pleasant male with history of prediabetes, chronic back pain, presenting with fatigue x 2 weeks Patient's history obtained from patient and family at the bedside supplementing information. He states that since 2 weeks ago while in [place], he has been having progressive fatigue, and frequent urination. 1 week ago, he started to have some mild cough and sputum production, and tested positive for COVID with a home test kit. No fevers or chills, abdominal pain, nausea vomiting, diarrhea. Last Wednesday, the patient return to the area but was having worsening of fatigue and polyuria. He saw his PCP yesterday and was called this morning about blood glucose level more than 1000. He was directed to go to the ER for further evaluation and treatment. At the ER, the patient was found to be in atrial fibrillation with a heart rate of 160s. Blood glucose was also in the 1000's. He was started on Cardizem drip and insulin drip. On exam, patient is seen sitting up in bed, appears tired but otherwise awake and alert, conversant, denies active shortness of breath, chest pain, palpitations. Does report feeling off balance when ambulating. No other new symptoms Allergies Allergy/AdvReac Type Severity Reaction Status Date / Time No Known Allergies Allergy Unknown Verified 12/18/23 09:37 Home Medications Medication Instructions Recorded Confirmed Type gabapentin 600 mg tablet 300 mg PO HS 12/18/23 12/18/23 History oxycodone 15 mg tablet 15 mg PO QID PRN Pain 12/18/23 12/18/23 History Past Med/Surg History Problem List (Updated 12/18/23 @ 10:08 by Poncho Ballesteros) Elevated troponin I level (Acute) Acute kidney injury (Acute) New onset type 2 diabetes mellitus (Acute) Atrial fibrillation with rapid ventricular response (Acute) Medical History Chronic back pain Surgical History No significant past surgical history Social History (Updated 12/18/23 @ 08:48 by Poncho Ballesteros) Smoking Status: Never smoker Second Hand Exposure: No; Do You Dip or Chew Tobacco: No; Tobacco Cessation Education Requested by Patient: No Hx Alcohol Use: No Hx Substance Use: No Preferred Language: Guamanian Communication Ability: Effective Developmental Specialist Required: No Beliefs That Will Affect Care: None marital status: Current Living Situation: Spouse current occupational status: employed Other Information That Helps Us Care for You: No Feels Safe at Home: Yes Safety Concerns: Feels Safe At This Time Assistive Devices: None Review of Systems Review of Systems: all noted and negative except for above Physical Exam Physical Exam: General- oriented x 3, not in distress, speaks in sentences with no effort or accessory muscle use Head- atraumatic Eyes- PERRL, EOMI, anicteric ENT- oropharynx clear Neck- supple, no JVD, no adenopathy, no thyromegaly; carotids +2/2, no bruits appreciated Lungs- clear to auscultation bilaterally, no rales/wheezes Heart- Tachycardic, irregularly irregular rhythm; no murmur, no gallop, no rub appreciated Abdomen- normal bowel sounds, nondistended, soft, nontender, no masses or hepatosplenomegaly Extremities- no pretibial edema, no calf tenderness; peripheral pulses intact Neuro- alert, oriented x 3; CN 2-12 grossly intact; motor 5/5 bilaterally;sensation 100% on all extremities; no other gross focal neurologic deficits Skin- warm & dry Results & Data Results & Data Vital Signs (Past 12 Hours) Vital Signs Temp Pulse Resp BP Pulse Ox O2 Del Method 12/18/23 10:36 142 H 16 123/91 95 12/18/23 10:36 117 H 14 95 12/18/23 10:20 117 H 14 131/103 H 95 12/18/23 10:15 134 H 13 120/92 96 12/18/23 10:10 134 H 14 104/83 97 12/18/23 10:05 127 H 14 106/89 97 Room Air 12/18/23 09:55 140 H 14 104/86 95 12/18/23 09:50 132 H 15 115/94 94 12/18/23 09:45 133 H 18 112/94 94 12/18/23 09:30 143 H 20 125/93 98 12/18/23 08:55 144 H 12 120/95 96 12/18/23 08:45 146 H 16 125/103 H 12/18/23 08:40 127 H 12 131/98 12/18/23 08:30 146 H 15 121/95 90 12/18/23 08:05 148 H 20 93 Room Air 12/18/23 08:03 167 H 18 150/99 H 93 12/18/23 07:40 194 H 12/18/23 07:15 36.1 C L 108 H 18 135/86 95 all noted and reviewed including below Code Status & VTE Plan VTE Prophylaxis Plan VTE Prophylaxis will be ordered: Yes
--- OUTSIDE RECORDS SUMMARY | 2023-12-18 12:15 | External Medical Summary | Summary of Care ---
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 Name Role Phone Marcelo Diaz MD Primary Care Provider [phone] Reason for Visit * Reason Onset Date Comments After Hours Call 12/18/2023 Encounter Details Date Type Department Care Team (Late st Contact Info) Description 12/18/2023 Telephone Family Practice [facility] [address] [facility] [place] [address] [address] [place] [id number] After Hours Call Allergies No known active allergiesdocumented as of this encounter (statuses as of 12/18/2023) Medications Medication Sig Dispensed Refills Start Date [...] as of this encounter (statuses as of 12/18/2023) Active Problems Problem Noted Date Diagnosed Date Change in stool 04/20/2017 Complex tear of medial meniscus of left knee 05/2014 Prediabetes 05/10/2014 Fissure, anal Bilateral knee pain Degenerative joint disease of low back documented as of this encounter (statuses as of 12/18/2023) Social History Tobacco Use Types Packs/Day Years [...] on file documented as of this encounter Miscellaneous Notes * Telephone Encounter - Britney Anderson DO - 12/18/2023 9:52 AM EDT Noted. Thank you. * Telephone Encounter - Kallie Guzman LPN - 12/18/2023 8:15 AM EDT Patient is currently in ER at [facility]. * Telephone Encounter - Britney Anderson DO - 12/18/2023 8:03 AM EDT Paged at 5:45 AM with critical glucose of 1322. Called pt at 5:48 AM and 5:53 AM - unable to reach. Left message advising pt to go to ER. Please call patient to advise ER. If unable to reach patient please ask police to do a welfare check. documented in this encounter Plan of Treatment Scheduled Procedures Name Priority Associated Diagnoses Date/Ti [...] Fecal Occult Blood Test 09/19/2012 Sigmoidoscopy 09/19/2012 Lung Cancer Screening 09/19/2017 Zoster Vaccines (1 of 2) 09/19/2017 Depression Screening 11/04/2021 11/04/2020 COVID-19 Vaccine (1 - 2022-2 4 season) 2023 Influenza Vaccine (FLU shot) (#1) 2024 HbA1c 12/16/2024 12/17/2023, 12/06/2014 DTaP,Tdap,and Td Vaccines (2 - Td or [...] Not on filedocumented as of this encounter Care Teams Fretted Instrument Maker Hand Relationship Specialty Start Date End Date Marcelo Diaz MD [address] [place] [address] PCP - General Family Medicine 03/31/23 documented as of this encounter
[2023-12-18] MEDS ORDERED: PHARMACY GLYCEMIC MGMT CONSULT PRN (12:23)
[2023-12-18] MEDS: HEPARIN SODIUM/DEXTROSE 25,000 UNITS/500 ML BAG IV SCH (12:37)
[2023-12-18] MEDS: SODIUM CHLORIDE 0.9% 1,000 ML IV SCH (12:37)
[2023-12-18] MEDS: Heparin IV Adult Wt-Based Low-Dose *NO* INITIAL Bolus Protocol IV SCH (12:37)
[2023-12-18] MEDS: HEPARIN 25000 UNIT/500 ML D5W IV ONE (12:38)
[2023-12-18 13:04] LABS: Base Excess VBG -1.7 mEq/L; HCO3 VBG 22 mmol/L; Oxygen Saturation VBG 75.1 %; PCO2 VBG 34 mmHg (38-50); PO2 VBG 41 mmHg; pH VBG 7.42 (7.36-7.41)
[2023-12-18] MEDS ORDERED: PENDING D5 1/2NS+20mEq KCL IVF SCH (13:15)
[2023-12-18] MEDS ORDERED: PENDING 1/2NSS+20mEq KCL IVF SCH (13:30)
[2023-12-18] MEDS ORDERED: Nursing to Pharmacy Communication SCH ×2 (14:30)
--- NOTE | 2023-12-18 14:53 | Pharmacy Report ---
Pharmacy Glycemic Short Note 2 - Date of Service December 18, 2023 - Glycemic Short BSG Results (Last 24 hours): 12/18/23 12/18/23 12/18/23 07:50 11:10 11:24 Glucose 1030 H* Cancelled POC Glucose > 600 H* 12/18/23 12/18/23 12:53 14:24 Glucose 604 H* POC Glucose 457 H* OUTPATIENT ANTIDIABETIC REGIMEN: * n/a HbA1c: 15.4% (12/18/23) ASSESSMENT: * DESTINY is a 58 year old male who reported to ED this morning after being contacted about abnormal glucose lab as an outpatient (>1000 mg/dL) * Baseline labs of glucose 1030 mg/dL, CO2 of 22 mmol/L, anion gap of 27, sodium of 142 mmol/L (corrected sodium of 157 mmol/L), VBG pH of 7.42 * Plasma osmolarity of 358 * IV fluids and insulin infusion initiated in ED * CDE consulted for new diagnosis of diabetes w/ need for insulin * Patient also presents in Afib w/ RVR, started on diltiazem gtt and heparin gtt (both mixed in dextrose) * Apparent COLEEN (SCr of 2.23 mg/dL), baseline reported as 1.7 mg/dL in H&P PLAN FOR INPATIENT GLYCEMIC CONTROL: * Insulin infusion with goal range of 250-350 mg/dL * Basal insulin * hold until blood sugars stabilize and HHS resolved * Bolus insulin * NovoLog per insulin infusion protocol to cover CHO only
[2023-12-18] MEDS: oxyCODONE HCL IR 5 MG TAB (IMMEDIATE RELEASE) PO PRN (15:03)
[2023-12-18] MEDS: dilTIAZem HCL 180 MG CAPCR PO SCH (15:24)
[2023-12-18] MEDS: SODIUM CHLORIDE 0.45 % 1,000 ML IV SCH (15:33)
[2023-12-18 16:00] LABS: Albumin Globulin Ratio 1.6 (0.9-2); Albumin Level 2.8 gm/dl (3.4-5.0); BUN Creatinine Ratio 31.3 (10-20); Bilirubin,Total 0.5 mg/dl (0.2-1.0); Calcium 6.5 mg/dl (8.6-10.3); Creatinine Clr Calc Pharmacy 104.6 ml/min; Est GFR (African American) 98.3 ml/min; Est GFR (Non-African American) 84.8 ml/min; Globulin 1.7 gm/dl (2.5-4.0); Magnesium 1.7 mg/dl (1.7-2.4); Total Protein 4.5 gm/dl (6.0-8.3)
[2023-12-18 16:02] LABS: Troponin I High Sensitivity 23.7 pg/ml (0-20)
[2023-12-18 16:04] LABS: ANTI-Xa, UFH(UnfractionatedHep 0.18 IU/ml (0.3-0.7)
[2023-12-18] MEDS: INSULIN ASPART PER UNIT CHARGE SC SCH (16:40)
[2023-12-18] MEDS ORDERED: D5W AND 1/2NSS + 20MEQ KCL 20 MEQ/1,000 ML BAG IV SCH (16:45)
[2023-12-18] MEDS: POTASSIUM CHLORIDE CRTAB 20 MEQ TABCR PO STA (17:44)
[2023-12-18] MEDS: CALCIUM GLUCONATE 1,000 MG/60 ML BAG IV STA (17:44)
[2023-12-18] MEDS: DEXTROSE 5% 1,000 ML IV SCH (17:44)
[2023-12-18] MEDS: POTASSIUM CHLORIDE / WTR 10 MEQ/100 ML PLCT IV SCH (17:44)
[2023-12-18] MEDS: ACETAMINOPHEN 325 MG TAB PO PRN (18:44)
--- NOTE | 2023-12-18 19:20 | Cardiology Consultation ---
Date of Consultation December 18, 2023 Assessment & Plan (1) Atrial fibrillation with rapid ventricular response: pt converted to SR. would wean off diltiazem drip and start diltiazem 180mg daily; discussed with pt about CVA risk and need to start AC-he has prescription coverage so will start eliquis and stop heparin drip 2 hours before eliquis dose he will need an out pt sleep study (2) Elevated troponin I level: given the extent of his uncontrolled Diabetes of HgA1c 15 and the AF with RVR plus his elevated BP he probably has some underlying degree of CAD and would easily spill troponins; he does not have any active or prior symptoms of angina- his EF is normal with no wall motion abnormalities-i think he needs an out patient stress test but at this juncture no need for any ischemic evaulation as an in patient. check fasting lipid panel (3) HTN (hypertension): BP is elevated during hospitalization; probably would benefit from an ACEI/ARB but would see if kidney function improves on tomorrows labs (4) New onset type 2 diabetes mellitus: pt has significantly uncontrolled diabetes; defer to hospitalist for treatment- he would benefit from MTM clinic for DM control upon discharge Plan 58y/o M with PMH for CBP for which he is on disabilty for but he also has not seen a physician in years admitted in DKA with COLEEN, AF with RVR and elevated troponins and BP. Converted to SR-start eliquis and diltiazem; out pt sleep study Out pt stress test if kidney function better tomorrow start ACEI/ARB for BP control check lipid panel History of Present Illness Reason for Consultation: AF Requesting Physician: Dr. Mims Attending Physician: Donte Mims MD History of Present Illness Pt presented to hospital after not feeling well for a few weeks; very fatigue some vision changes and SOB and cough; he was found to be in AF with RVR and DKA he was placed on an insulin as well as diltiazem drip and heparin. He converted to SR midday-i saw pt shortly after this conversion with his daughter at the bed side. Pt denies any chest pain or near syncope he stopped smoking a few months ago He has not seen a physician in years he has been drinking energy drinks and other juices he has chronic back pain and is on disability for this Allergies Allergy/AdvReac Type Severity Reaction Status Date / Time No Known Allergies Allergy Unknown Verified 12/18/23 09:37 Home Medications Medication Instructions Recorded Confirmed Type gabapentin 600 mg tablet 300 mg PO HS 12/18/23 12/18/23 History oxycodone 15 mg tablet 15 mg PO QID PRN Pain 12/18/23 12/18/23 History Patient History Medical History Chronic back pain Surgical History No significant past surgical history Social History Smoking Status: Never smoker Second Hand Exposure: No; Do You Dip or Chew Tobacco: No; Tobacco Cessation Education Requested by Patient: No Hx Alcohol Use: No Hx Substance Use: No Preferred Language: Nigerian Communication Ability: Effective Normalizer Required: No Beliefs That Will Affect Care: None marital status: Current Living Situation: Spouse current occupational status: employed Other Information That Helps Us Care for You: No Feels Safe at Home: Yes Safety Concerns: Feels Safe At This Time Assistive Devices: None Review of Systems Review of Systems: All systems reviewed & are unremarkable except as noted in HPI & below Physical Exam Physical Exam: aaox3, NAD NC/AT, EOMI Supple No JVD Nrl S1/S2, No murmur CTA b/l no w/r/r soft nt/nd no LE edema b/l skin intact no focal deficits Results & Data Vital Signs (Past 12 Hours) Vital Signs Temp Pulse Pulse Resp BP BP Pulse Ox 12/18/23 14:00 81 16 128/88 94 12/18/23 13:00 84 16 117/76 93 12/18/23 12:23 130 H 12/18/23 12:23 36.9 C 137 H 16 138/78 95 12/18/23 12:23 12/18/23 12:20 80 12/18/23 10:36 142 H 16 123/91 95 12/18/23 10:36 117 H 14 95 12/18/23 10:20 117 H 14 131/103 H 95 12/18/23 10:15 134 H 13 120/92 96 12/18/23 10:10 134 H 14 104/83 97 12/18/23 10:05 127 H 14 106/89 97 12/18/23 09:55 140 H 14 104/86 95 12/18/23 09:50 132 H 15 115/94 94 12/18/23 09:45 133 H 18 112/94 94 12/18/23 09:30 143 H 20 125/93 98 12/18/23 08:55 144 H 12 120/95 96 12/18/23 08:45 146 H 16 125/103 H 12/18/23 08:40 127 H 12 131/98 12/18/23 08:30 146 H 15 121/95 90 12/18/23 08:05 148 H 20 93 12/18/23 08:03 167 H 18 150/99 H 93 12/18/23 07:40 194 H Pulse Ox O2 Del Method O2 Del Method 12/18/23 14:00 Room Air 12/18/23 13:00 Room Air 12/18/23 12:23 12/18/23 12:23 Room Air 12/18/23 12:23 95 Room Air 12/18/23 12:20 12/18/23 10:36 12/18/23 10:36 12/18/23 10:20 12/18/23 10:15 12/18/23 10:10 12/18/23 10:05 Room Air 12/18/23 09:55 12/18/23 09:50 12/18/23 09:45 12/18/23 09:30 12/18/23 08:55 12/18/23 08:45 12/18/23 08:40 12/18/23 08:30 12/18/23 08:05 Room Air 12/18/23 08:03 12/18/23 07:40 Laboratory Results Laboratory Results - last 24 hr 12/18/23 12/18/23 12/18/23 07:50 07:55 08:35 WBC 13.03 H RBC 5.85 Hgb 17.2 Hct 54.4 H MCV 93.0 MCH 29.4 MCHC 31.6 L RDW Std Deviation 42.5 RDW Coeff of Vahid 12.4 Plt Count 206 MPV 13.0 H Immature Gran % (Auto) 0.4 Neut % (Auto) 71.5 Lymph % (Auto) 22.2 [place]asta % (Auto) 5.4 Eos % (Auto) 0.3 Baso % (Auto) 0.2 Neut # (Auto) 9.31 H Lymph # (Auto) 2.89 [place]asta # (Auto) 0.71 H Eos # (Auto) 0.04 Baso # (Auto) 0.03 Immature Gran # (Auto) 0.05 PT 10.5 INR 1.0 Heparin Anti-Xa, Unfract VBG pH VBG pCO2 VBG pO2 VBG HCO3 VBG O2 Saturation VBG Base Excess Sodium 142 Potassium 5.2 H Chloride 93 L Carbon Dioxide 22 Anion Gap 27 H BUN 47 H Creatinine 2.23 H Est Cr Clr Drug Dosing 43.0 Est GFR ( Amer) 36.8 Est GFR (Non-Af Amer) 31.8 BUN/Creatinine Ratio 21.1 H Glucose 1030 H* POC Glucose Estimat Average Glucose 395 Hemoglobin A1c 15.4 H Osmolality Lactate 3.5 H* Calcium 10.7 H Ionized Calcium Magnesium 3.0 H Total Bilirubin 0.7 AST 41 H ALT 50 Alkaline Phosphatase 125 H Troponin I High Sens 28.0 H Total Protein 7.7 Albumin 4.7 Globulin 3.0 Albumin/Globulin Ratio 1.6 TSH 1.119 Urine Color Yellow Urine Appearance Clear Urine pH 5.0 Ur Specific [place] 1.037 H Urine Protein Negative Urine Glucose (UA) 3+ H Urine Ketones 1+ H Urine Blood Negative Urine Nitrite Negative Urine Bilirubin Negative Urine Urobilinogen Negative Ur Leukocyte Esterase Negative Adenovirus (PCR) Not Detected B. pertussis DNA (PCR) Not Detected B.parapertussis DNA PCR Not Detected C. pneumoniae DNA (PCR) Not Detected Coronavirus OC43 (PCR) Not Detected Coronavirus HKU1 (PCR) Not Detected Coronavirus 229E (PCR) Not Detected SARS-CoV-2 (PCR) Not Detected Coronavirus NL63 (PCR) Not Detected Human Metapneumovir PCR Not Detected Influenza Type A (PCR) Not Detected Influenza Type B (PCR) Not Detected M. pneumoniae (PCR) Not Detected Parainfluenza 1 (PCR) Not Detected Parainfluenza 2 (PCR) Not Detected Parainfluenza 3 (PCR) Not Detected Parainfluenza 4 (PCR) Not Detected RSV (PCR) Not Detected Entero/Rhino (PCR) Not Detected 12/18/23 12/18/23 12/18/23 10:05 10:21 11:10 WBC RBC Hgb Hct MCV MCH MCHC RDW Std Deviation RDW Coeff of Vahid Plt Count MPV Immature Gran % (Auto) Neut % (Auto) Lymph % (Auto) [place]asta % (Auto) Eos % (Auto) Baso % (Auto) Neut # (Auto) Lymph # (Auto) [place] # (Auto) Eos # (Auto) Baso # (Auto) Immature Gran # (Auto) PT INR Heparin Anti-Xa, Unfract VBG pH VBG pCO2 VBG pO2 VBG HCO3 VBG O2 Saturation VBG Base Excess Sodium Potassium Chloride Carbon Dioxide Anion Gap BUN Creatinine Est Cr Clr Drug Dosing Est GFR ( Amer) Est GFR (Non-Af Amer) BUN/Creatinine Ratio Glucose POC Glucose > 600 H* Estimat Average Glucose Hemoglobin A1c Osmolality Lactate 4.1 H* Calcium Ionized Calcium Magnesium Total Bilirubin AST ALT Alkaline Phosphatase Troponin I High Sens 24.8 H Total Protein Albumin Globulin Albumin/Globulin Ratio TSH Urine Color Urine Appearance Urine pH Ur Specific [place] Urine Protein Urine Glucose (UA) Urine Ketones Urine Blood Urine Nitrite Urine Bilirubin Urine Urobilinogen Ur Leukocyte Esterase Adenovirus (PCR) B. pertussis DNA (PCR) B.parapertussis DNA PCR C. pneumoniae DNA (PCR) Coronavirus OC43 (PCR) Coronavirus HKU1 (PCR) Coronavirus 229E (PCR) SARS-CoV-2 (PCR) Coronavirus NL63 (PCR) Human Metapneumovir PCR Influenza Type A (PCR) Influenza Type B (PCR) M. pneumoniae (PCR) Parainfluenza 1 (PCR) Parainfluenza 2 (PCR) Parainfluenza 3 (PCR) Parainfluenza 4 (PCR) RSV (PCR) Entero/Rhino (PCR) 12/18/23 12/18/23 12/18/23 11:24 12:53 14:24 WBC RBC Hgb Hct MCV MCH MCHC RDW Std Deviation RDW Coeff of Vahid Plt Count MPV Immature Gran % (Auto) Neut % (Auto) Lymph % (Auto) [place]asta % (Auto) Eos % (Auto) Baso % (Auto) Neut # (Auto) Lymph # (Auto) [place] # (Auto) Eos # (Auto) Baso # (Auto) Immature Gran # (Auto) PT INR Heparin Anti-Xa, Unfract VBG pH 7.42 H VBG pCO2 34 L VBG pO2 41 VBG HCO3 22 VBG O2 Saturation 75.1 VBG Base Excess -1.7 Sodium Potassium Chloride Carbon Dioxide Anion Gap BUN Creatinine Est Cr Clr Drug Dosing Est GFR ( Amer) Est GFR (Non-Af Amer) BUN/Creatinine Ratio Glucose Cancelled 604 H* POC Glucose 457 H* Estimat Average Glucose Hemoglobin A1c Osmolality 358 H* Lactate Calcium Ionized Calcium Magnesium Total Bilirubin AST ALT Alkaline Phosphatase Troponin I High Sens Total Protein Albumin Globulin Albumin/Globulin Ratio TSH Urine Color Urine Appearance Urine pH Ur Specific [place] Urine Protein Urine Glucose (UA) Urine Ketones Urine Blood Urine Nitrite Urine Bilirubin Urine Urobilinogen Ur Leukocyte Esterase Adenovirus (PCR) B. pertussis DNA (PCR) B.parapertussis DNA PCR C. pneumoniae DNA (PCR) Coronavirus OC43 (PCR) Coronavirus HKU1 (PCR) Coronavirus 229E (PCR) SARS-CoV-2 (PCR) Coronavirus NL63 (PCR) Human Metapneumovir PCR Influenza Type A (PCR) Influenza Type B (PCR) M. pneumoniae (PCR) Parainfluenza 1 (PCR) Parainfluenza 2 (PCR) Parainfluenza 3 (PCR) Parainfluenza 4 (PCR) RSV (PCR) Entero/Rhino (PCR) 12/18/23 12/18/23 12/18/23 15:16 15:26 16:34 WBC RBC Hgb Hct MCV MCH MCHC RDW Std Deviation RDW Coeff of Vahid Plt Count MPV Immature Gran % (Auto) Neut % (Auto) Lymph % (Auto) [place] % (Auto) Eos % (Auto) Baso % (Auto) Neut # (Auto) Lymph # (Auto) [place] # (Auto) Eos # (Auto) Baso # (Auto) Immature Gran # (Auto) PT INR Heparin Anti-Xa, Unfract 0.18 L VBG pH VBG pCO2 VBG pO2 VBG HCO3 VBG O2 Saturation VBG Base Excess Sodium 151 H D Potassium 3.0 L D Chloride 124 H Carbon Dioxide 19 L Anion Gap 8 BUN 31 H Creatinine 0.99 D Est Cr Clr Drug Dosing 104.6 Est GFR ( Amer) 98.3 Est GFR (Non-Af Amer) 84.8 BUN/Creatinine Ratio 31.3 H Glucose 319 H* POC Glucose 326 H* 321 H* Estimat Average Glucose Hemoglobin A1c Osmolality Lactate 2.4 H* Calcium 6.5 L D Ionized Calcium Cancelled Magnesium 1.7 Total Bilirubin 0.5 AST 24 ALT 28 Alkaline Phosphatase 67 Troponin I High Sens 23.7 H Total Protein 4.5 L D Albumin 2.8 L Globulin 1.7 L Albumin/Globulin Ratio 1.6 TSH Urine Color Urine Appearance Urine pH Ur Specific [place] Urine Protein Urine Glucose (UA) Urine Ketones Urine Blood Urine Nitrite Urine Bilirubin Urine Urobilinogen Ur Leukocyte Esterase Adenovirus (PCR) B. pertussis DNA (PCR) B.parapertussis DNA PCR C. pneumoniae DNA (PCR) Coronavirus OC43 (PCR) Coronavirus HKU1 (PCR) Coronavirus 229E (PCR) SARS-CoV-2 (PCR) Coronavirus NL63 (PCR) Human Metapneumovir PCR Influenza Type A (PCR) Influenza Type B (PCR) M. pneumoniae (PCR) Parainfluenza 1 (PCR) Parainfluenza 2 (PCR) Parainfluenza 3 (PCR) Parainfluenza 4 (PCR) RSV (PCR) Entero/Rhino (PCR) 12/18/23 12/18/23 17:31 18:36 WBC RBC Hgb Hct MCV MCH MCHC RDW Std Deviation RDW Coeff of Vahid Plt Count MPV Immature Gran % (Auto) Neut % (Auto) Lymph % (Auto) [place] % (Auto) Eos % (Auto) Baso % (Auto) Neut # (Auto) Lymph # (Auto) [place] # (Auto) Eos # (Auto) Baso # (Auto) Immature Gran # (Auto) PT INR Heparin Anti-Xa, Unfract VBG pH VBG pCO2 VBG pO2 VBG HCO3 VBG O2 Saturation VBG Base Excess Sodium Potassium Chloride Carbon Dioxide Anion Gap BUN Creatinine Est Cr Clr Drug Dosing Est GFR ( Amer) Est GFR (Non-Af Amer) BUN/Creatinine Ratio Glucose POC Glucose 432 H* 252 H Estimat Average Glucose Hemoglobin A1c Osmolality Lactate Calcium Ionized Calcium Magnesium Total Bilirubin AST ALT Alkaline Phosphatase Troponin I High Sens Total Protein Albumin Globulin Albumin/Globulin Ratio TSH Urine Color Urine Appearance Urine pH Ur Specific [place] Urine Protein Urine Glucose (UA) Urine Ketones Urine Blood Urine Nitrite Urine Bilirubin Urine Urobilinogen Ur Leukocyte Esterase Adenovirus (PCR) B. pertussis DNA (PCR) B.parapertussis DNA PCR C. pneumoniae DNA (PCR) Coronavirus OC43 (PCR) Coronavirus HKU1 (PCR) Coronavirus 229E (PCR) SARS-CoV-2 (PCR) Coronavirus NL63 (PCR) Human Metapneumovir PCR Influenza Type A (PCR) Influenza Type B (PCR) M. pneumoniae (PCR) Parainfluenza 1 (PCR) Parainfluenza 2 (PCR) Parainfluenza 3 (PCR) Parainfluenza 4 (PCR) RSV (PCR) Entero/Rhino (PCR) Diagnostic Findings Echocardiogram 12/18/2023: EF normal non-dilated cardiac chambers no significant vavular pathology Medications Administered Current Inpatient Medications Acetaminophen (Acetaminophen 325 Mg Tab) 650 mg PO Q4H PRN PRN Reason: Pain or Fever Stop: 01/17/24 12:22 Last Admin: 12/18/23 18:44 Dose: 650 mg Apixaban (Apixaban 5 Mg Tablet) 5 mg PO BID [facility] Stop: 01/17/24 20:59 Diltiazem HCl (Diltiazem Hcl 180 Mg Capcr) 180 mg PO QAM [facility] Stop: 01/17/24 14:29 Last Admin: 12/18/23 15:24 Dose: 180 mg Gabapentin (Gabapentin 600 Mg Tab) 300 mg PO HS [facility] Stop: 01/17/24 20:59 Diltiazem HCl 125 mg/ Dextrose 125 mls @ 10 mls/hr IV .[id number] BUSHRA; Protocol Stop: 01/17/24 08:29 Last Titration: 12/18/23 19:08 Dose: 5 mg/hr, 5 mls/hr Insulin Human Regular 250 (units/ Sodium Chloride) 250 mls @ 9.4 mls/hr IV .Q24H BUSHRA; Protocol Stop: 01/17/24 09:14 Last Titration: 12/18/23 19:00 Dose: 6.8 units/hr, 6.8 mls/hr Dextrose (D5w) 1,000 mls @ 80 mls/hr IV .[id number] [facility] Stop: 01/17/24 16:44 Last Admin: 12/18/23 17:44 Dose: 80 mls/hr Potassium Chloride ([place] / Wtr) 10 meq in 100 mls @ 100 mls/hr IV Q1H [facility] Stop: 12/18/23 20:44 Last Admin: 12/18/23 18:46 Dose: 100 mls/hr Insulin Aspart (Insulin Aspart Per Unit Charge) 0 units SC ACHS BUSH[facility] Stop: 01/17/24 16:29 Last Admin: 12/18/23 16:40 Dose: Not Given Miscellaneous Information (Pharmacy Glycemic Mgmt Consult) 1 each N/A UD PRN; Protocol PRN Reason: Consult Stop: 01/17/24 12:22 Oxycodone HCl (Oxycodone Hcl Ir 5 Mg Tab (Immediate Release)) 15 mg PO QID PRN PRN Reason: Pain Stop: 01/01/24 13:12 Last Admin: 12/18/23 15:03 Dose: 15 mg ECG Additional Comments: ECGS: 12/17/2023 AF 151bpm 07/2019: SR 63bpm
[2023-12-18] MEDS ORDERED: CARBOHYDRATES FOR HYPOGLYCEMIA PO PRN (20:00)
[2023-12-18] MEDS ORDERED: GLUCOSE 40% GEL 15 GM TUBE PO PRN (20:00)
[2023-12-18] MEDS ORDERED: GLUCOSE 10 TAB/TUBE PO PRN (20:00)
[2023-12-18] MEDS ORDERED: DEXTROSE 50% 50 ML SYRINGE IV PRN (20:00)
[2023-12-18] MEDS ORDERED: GLUCAGON FOR INJ 1 MG VIAL IM PRN (20:00)
[2023-12-18] MEDS: GABAPENTIN 600 MG TAB PO SCH (20:10)
[2023-12-18] MEDS: APIXABAN 5 MG TABLET PO SCH (20:10)
[2023-12-18 23:18] LABS: Albumin Globulin Ratio 1.6 (0.9-2); Albumin Level 3.8 gm/dl (3.4-5.0); BUN Creatinine Ratio 26.4 (10-20); Bilirubin,Total 0.6 mg/dl (0.2-1.0); Calcium 9.4 mg/dl (8.6-10.3); Creatinine Clr Calc Pharmacy 71.9 ml/min; Est GFR (African American) 62.5 ml/min; Est GFR (Non-African American) 53.9 ml/min; Globulin 2.4 gm/dl (2.5-4.0); Magnesium 2.1 mg/dl (1.7-2.4); Potassium 3.7 mmol/L (3.5-5.1); Total Protein 6.2 gm/dl (6.0-8.3)
[2023-12-19] MEDS: IBUPROFEN 200 MG TAB PO STA ×2 (03:10→16:59)
[2023-12-19 07:25] LABS: Basophils # (auto) 0.02 K/uL (0.00-0.20); Basophils % (auto) 0.2 %; Eosinophils # (auto) 0.07 K/uL (0.00-0.50); Eosinophils % (auto) 0.5 %; Hematocrit (blood only) 47.1 % (42.0-52.0); Hemoglobin 15.2 g/dl (14.0-18.0); Immature Granulocytes # (auto) 0.06 K/uL (0.01-0.20); Immature Granulocytes % (auto) 0.5 %; Lymphocytes # (auto) 1.53 K/uL (1.20-3.40); Lymphocytes % (auto) 11.9 %; Mean Corpuscular Hemoglobin 29.5 pg (25.0-34.0); Mean Corpuscular Hgb Conc 32.3 g/dL (32.0-36.0); Mean Corpuscular Volume 91.3 fL (80.0-100.0); Mean Platelet Volume 12.2 fL (9.4-12.4); Monocytes # (auto) 0.42 K/uL (0.11-0.59); Monocytes % (auto) 3.3 %; Neutrophils # (auto) 10.74 K/uL (1.40-6.50); Neutrophils % (auto) 83.6 %; Platelet Count 114 K/uL (130-400); RDW Coefficient of Variation 12.5 % (11.5-14.5); RDW Standard Deviation 41.3 fL (36.4-46.3); Red Blood Count 5.16 M/uL (4.70-6.10); White Blood Count 12.84 K/ul (4.8-10.8)
--- NOTE | 2023-12-19 07:25 | Ultrasound Report ---
RENAL ULTRASOUND CLINICAL HISTORY: Acute kidney injury. COMPARISON STUDY: None. TECHNIQUE: Sonography of the kidneys and the urinary bladder was performed. FINDINGS: The right kidney measures 10.2 cm in maximal dimension and the left kidney measures 11.5 cm . There is no hydronephrosis. No renal mass or calculus is identified by sonography. Ureteral jets we re not visualized. IMPRESSION: No hydronephrosis. ACT 112: Negative or not required by law. Electronically signed by: Mohamud Dubois M.D. 12/19/2023 7:23 AM
[2023-12-19 07:52] LABS: Albumin Globulin Ratio 1.6 (0.9-2); Albumin Level 3.6 gm/dl (3.4-5.0); BUN Creatinine Ratio 28.5 (10-20); Calcium 8.9 mg/dl (8.6-10.3); Chol HDL Ratio 5.1 (0-5); Creatinine Clr Calc Pharmacy 73.8 ml/min; Est GFR (African American) 70.7 ml/min; Globulin 2.3 gm/dl (2.5-4.0); Potassium 4.1 mmol/L (3.5-5.1); Total Protein 5.9 gm/dl (6.0-8.3)
[2023-12-19] MEDS: D5W AND 1/2NSS 1,000 ML IV SCH (10:29)
[2023-12-19 11:56] LABS: Adenovirus PCR Not Detected (NotDetected); Bordetella parapertussis PCR Not Detected (NotDetected); Bordetella pertussis PCR Not Detected (NotDetected); Chlamydia pneumoniae PCR Not Detected (NotDetected); Coronavirus 229E PCR Not Detected (NotDetected); Coronavirus CoV-2 (COVID19)PCR Not Detected (NotDetected); Coronavirus HKU1 PCR Not Detected (NotDetected); Coronavirus NL63 PCR Not Detected (NotDetected); Coronavirus OC43PCR Not Detected (NotDetected); Human Metapneumovirus PCR Not Detected (NotDetected); Influenza A PCR Not Detected (NotDetected); Influenza B PCR Not Detected (NotDetected); Mycoplasma pneumoniae PCR Not Detected (NotDetected); Parainfluenza Virus 1 PCR Not Detected (NotDetected); Parainfluenza Virus 2 PCR Not Detected (NotDetected); Parainfluenza Virus 3 PCR Not Detected (NotDetected); Parainfluenza Virus 4 PCR Not Detected (NotDetected); Respiratory Syncytial VirusPCR Not Detected (NotDetected); Rhinovirus/Enterovirus PCR Not Detected (NotDetected)
--- NOTE | 2023-12-19 12:11 | Hospitalist Progress Note ---
Date of Service December 19, 2023 Assessment & Plan (1) Atrial fibrillation with rapid ventricular response: (2) New onset type 2 diabetes mellitus: (3) Elevated troponin I level: (4) Acute kidney injury: Plan: Patient is a 55-year-old very pleasant male with history of prediabetes, chronic back pain, presenting with fatigue x 2 weeks DKA/HHS Uncontrolled DM II--New diagnosis HbA1C: 15.4 Anion gap closed, metabolic acidosis resolved IV insulin transition to subcutaneous Glycemic pharmacist consulted clinical staff educator consulted as well Advance diet as tolerated Monitor blood glucose levels Continue IV fluids A-fib RVR Spontaneously converted to sinus Mild troponin elevation--likely demand ischemia secondary to above Weaned off of Cardizem drip Started on p.o. Cardizem 180mg daily On Eliquis for anticoagulation Appreciate cardiology input Will need outpatient sleep study URI Suspected COVID-19 infection Home COVID test positive Bio[employer] negative CXR:No acute cardiopulmonary findings. Pulmonary hygiene Check procalcitonin If procalcitonin elevated, will consider antibiotics Antitussives as needed Acute kidney injury Baseline 1.7 per record Likely prerenal Cr>2.2>1.4>1.2 Renal USD:No hydronephrosis. Continue IV fluids Avoid nephrotoxic agents as able Monitor renal function Hypernatremia Likely due to significant dehydration Sodium levels improved to 144 Continue IV fluids Monitor sodium levels Other Electrolyte abnormalities Mild hyperkalemia, hypercalcemia, hypermagnesemia Resolved Monitor Chronic back pain On oxycodone 15 mg every 4 hours Gabapentin 300 mg at bedtime Patient would like to wean off from pain meds Follows with pain management clinic DVT Px: Eliquis CODE STATUS Full code Admission and Anticipated Discharge Date Admission Date: December 18, 2023 Subjective Patient is seen and examined at bedside States having generalized weakness Also reports minimal dry cough Denies any chest pain, dyspnea, nausea, vomiting, abdominal pain, diarrhea Family at bedside Review of Systems Review of Systems: All systems reviewed & are unremarkable except as noted in Subjective Physical Exam Physical Exam: Physical Exam: Vitals signs as noted above General Appearance:Moderately built and nourished, no apparent distress Head: normocephalic, Atraumatic Eyes: normal inspection, EOMI Neck: supple, Trachea midline Respiratory/Chest: Decreased breath sounds, CTA, No accessory muscle use Cardiovascular: S1, S2, No murmur Abdomen/GI:Soft, Non tender, Bowel sounds present Extremities/Musculoskeletal:normal inspection, 1+ B/L LE edema Neurologic/Psych:AAOX3, grossly no focal neurological deficits Skin: normal color, warm Results & Data Results & Data Vital Signs (Past 12 Hours) Vital Signs Temp Pulse Resp BP Pulse Ox O2 Del Method O2 Flow Rate 12/19/23 11:30 75 14 122/86 97 Nasal Cannula 2 12/19/23 08:00 36.8 C 60 16 133/77 97 Room Air, Nasal Cannula 2 12/19/23 03:56 37.4 C 65 18 135/81 94 Nasal Cannula 2 Laboratory Results Short CBC 12/19/23 Range/Units 06:50 WBC 12.84 H (4.8-10.8) K/ul Hgb 15.2 (14.0-18.0) g/dl Hct 47.1 (42.0-52.0) % Plt Count 114 L (130-400) K/uL BMP 12/18/23 12/18/23 12/18/23 12:53 15:16 22:44 Sodium 151 H D 151 H Potassium 3.0 L D 3.7 D Chloride 124 H 116 H Carbon Dioxide 19 L 26 BUN 31 H 38 H Creatinine 0.99 D 1.44 H D Glucose 604 H* 319 H* 222 H Calcium 6.5 L D 9.4 D 12/19/23 06:50 Sodium 147 H Potassium 4.1 Chloride 111 H Carbon Dioxide 27 BUN 37 H Creatinine 1.30 Glucose 308 H* Calcium 8.9 Liver Function 12/18/23 12/18/23 12/19/23 Range/Units 15:16 22:44 06:50 Total Bilirubin 0.5 0.6 1.0 (0.2-1.0) mg/dl AST 24 27 28 (13-39) U/L ALT 28 37 32 (7-52) U/L Alkaline Phosphatase 67 89 83 (34-104) U/L Albumin 2.8 L 3.8 3.6 (3.4-5.0) gm/dl
[2023-12-19] MEDS ORDERED: guaiFENesin/DEXTROM SYRUP 100MG/10MG 5ML UDC PO PRN (12:14)
[2023-12-19 12:29] LABS: BUN Creatinine Ratio 25.6 (10-20); Calcium 8.7 mg/dl (8.6-10.3); Creatinine Clr Calc Pharmacy 74.3 ml/min; Est GFR (African American) 71.4 ml/min; Est GFR (Non-African American) 61.6 ml/min
[2023-12-19] MEDS: LACTATED RINGER'S 1,000 ML IV SCH (13:50)
[2023-12-19] MEDS: LANTUS PER UNIT CHARGE SC ONE (13:58)
--- NOTE | 2023-12-19 14:01 | Pharmacy Report ---
Pharmacy Glycemic Short Note 2 - Date of Service December 19, 2023 - Glycemic Short BSG Results (Last 24 hours): 12/18/23 12/18/23 12/18/23 14:24 15:16 15:26 Glucose 319 H* POC Glucose 457 H* 326 H* 12/18/23 12/18/23 12/18/23 16:34 17:31 18:36 Glucose POC Glucose 321 H* 432 H* 252 H 12/18/23 12/18/23 12/18/23 20:03 21:06 22:10 Glucose POC Glucose 212 H 204 H 210 H 12/18/23 12/18/23 12/18/23 22:44 23:04 23:59 Glucose 222 H POC Glucose 221 H 226 H 12/19/23 12/19/23 12/19/23 01:05 02:05 03:13 Glucose POC Glucose 248 H 229 H 248 H 12/19/23 12/19/23 12/19/23 04:13 05:09 05:16 Glucose POC Glucose 260 H 356 H* 303 H* 12/19/23 12/19/23 12/19/23 06:09 06:50 08:09 Glucose 308 H* POC Glucose 323 H* 291 H 12/19/23 12/19/23 12/19/23 10:28 11:34 11:41 Glucose 346 H* POC Glucose 329 H* 333 H* 12/19/23 12/19/23 12:38 13:37 Glucose POC Glucose 346 H* 331 H* OUTPATIENT ANTIDIABETIC REGIMEN: * n/a HbA1c: 15.4% (12/18/23) ASSESSMENT: 12/19/23: * Insulin gtt continued overnight * Labs much improved today * Diet ordered with lunch, will plan to transition to SC basal/bolus regimen * General recommendation for insulin naive patients is 0.5-0.8 unit/kg/day (split 50/50 basal/bolus) * Will order basal insulin in line with this range today 12/18/23: * DESTINY is a 58 year old male who reported to ED this morning after being contacted about abnormal glucose lab as an outpatient (>1000 mg/dL) * Baseline labs of glucose 1030 mg/dL, CO2 of 22 mmol/L, anion gap of 27, sodium of 142 mmol/L (corrected sodium of 157 mmol/L), VBG pH of 7.42 * Plasma osmolarity of 358 * IV fluids and insulin infusion initiated in ED * CDE consulted for new diagnosis of diabetes w/ need for insulin * Patient also presents in Afib w/ RVR, started on diltiazem gtt and heparin gtt (both mixed in dextrose) * Apparent COLEEN (SCr of 2.23 mg/dL), baseline reported as 1.7 mg/dL in H&P PLAN FOR INPATIENT GLYCEMIC CONTROL: * Insulin infusion with goal range of 110-180 mg/dL * Basal insulin * 35 units SC x 1 (0.36 unit/kg) now in attempt to transition off insulin infusion * Consider additional low-dose basal insulin this evening if blood sugars still not trending down * Bolus insulin * NovoLog per insulin infusion protocol to cover CHO only
[2023-12-19 20:00] LABS: BUN Creatinine Ratio 25.5 (10-20); Calcium 8.7 mg/dl (8.6-10.3); Creatinine Clr Calc Pharmacy 87.2 ml/min; Est GFR (African American) 86.5 ml/min; Est GFR (Non-African American) 74.6 ml/min; Potassium 3.4 mmol/L (3.5-5.1)
[2023-12-19] MEDS: DOXYCYCLINE HYCLATE 100 MG CAP PO SCH (20:26)
[2023-12-20] MEDS: LANTUS PER UNIT CHARGE SC ONE ×2 (00:54→13:17)
[2023-12-20 06:29] LABS: Albumin Globulin Ratio 1.4 (0.9-2); BUN Creatinine Ratio 21.3 (10-20); Bilirubin,Total 0.9 mg/dl (0.2-1.0); Calcium 8.2 mg/dl (8.6-10.3); Creatinine Clr Calc Pharmacy 88.8 ml/min; Est GFR (African American) 88.5 ml/min; Est GFR (Non-African American) 76.3 ml/min; Globulin 2.2 gm/dl (2.5-4.0); Magnesium 1.7 mg/dl (1.7-2.4); Potassium 3.7 mmol/L (3.5-5.1); Total Protein 5.2 gm/dl (6.0-8.3)
[2023-12-20 06:49] LABS: Basophils # (auto) 0.02 K/uL (0.00-0.20); Basophils % (auto) 0.2 %; Dohle Bodies 1+; Eosinophils # (auto) 0.09 K/uL (0.00-0.50); Eosinophils % (auto) 0.7 %; Hemoglobin 12.8 g/dl (14.0-18.0); Immature Granulocytes # (auto) 0.16 K/uL (0.01-0.20); Immature Granulocytes % (auto) 1.2 %; Lymphocytes # (auto) 1.14 K/uL (1.20-3.40); Lymphocytes % (auto) 8.7 %; Mean Corpuscular Hemoglobin 29.9 pg (25.0-34.0); Mean Corpuscular Hgb Conc 32.8 g/dL (32.0-36.0); Mean Corpuscular Volume 91.1 fL (80.0-100.0); Mean Platelet Volume 12.9 fL (9.4-12.4); Monocytes # (auto) 0.53 K/uL (0.11-0.59); Neutrophils # (auto) 11.16 K/uL (1.40-6.50); Neutrophils % (auto) 85.2 %; Platelet Count 77 K/uL (130-400); Platelet Estimate Decreased (Normal); Polychromasia 1+; RDW Coefficient of Variation 12.2 % (11.5-14.5); RDW Standard Deviation 40.7 fL (36.4-46.3); Red Blood Count 4.28 M/uL (4.70-6.10)
[2023-12-20] MEDS ORDERED: Nursing to Pharmacy Communication SCH (07:30)
--- NOTE | 2023-12-20 08:56 | XRay Report ---
XR chest 1V portable HISTORY: 58 years-old Male Hypoxia acute hypoxia COMPARISON: 12/18/2023 TECHNIQUE: AP view of the chest FINDINGS: Cardiomediastinal and hilar silhouettes are unchanged. No pneumothorax, overt pulmonary edema or pleu ral effusion. Mild left basilar and retrocardiac densities. Left mid lung linear density. Bones appea r grossly intact. IMPRESSION: Interval development of left mid lung atelectasis with additional left basilar opacities which may re present atelectasis versus pneumonia. ACT 112: Negative or not required by law. The above report was generated using voice recognition software. It may contain grammatical, syntax o r spelling errors. Electronically signed by: Keenan Howe M.D. 12/20/2023 8:55 AM
[2023-12-20] MEDS ORDERED: ARTIFICIAL TEARS OPB PRN (11:43)
--- NOTE | 2023-12-20 11:57 | CT Scan Report ---
HEAD CT NONCONTRAST CT DOSE: 703.85 mGy.cm HISTORY: Blurry vision TECHNIQUE: Multiaxial CT images of the head were performed without the use of intravenous contrast. A utomated exposure control was utilized for this study. A dose lowering technique was utilized adheri ng to the principles of ALARA. Comparison: None. Findings: The paranasal sinuses and mastoid air cells are clear. The calvarium and skull base are int act. The ventricles and sulci are within normal limits. There is no mass, hematoma, midline shift, or acute infarct. Impression: No acute intracranial abnormality. ACT 112: Negative or not required by law. Electronically signed by: Remi George M.D. 12/20/2023 11:55 AM
--- NOTE | 2023-12-20 14:42 | Pharmacy Report ---
Pharmacy Glycemic Short Note 2 - Date of Service December 20, 2023 - Glycemic Short BSG Results (Last 24 hours): 12/19/23 12/19/23 12/19/23 14:44 15:40 16:35 Glucose POC Glucose 353 H* 284 H 224 H 12/19/23 12/19/23 12/19/23 17:30 18:34 19:14 Glucose 204 H POC Glucose 237 H 231 H 12/19/23 12/19/23 12/19/23 19:38 21:34 22:36 Glucose POC Glucose 173 H 186 H 162 H 12/19/23 12/20/23 12/20/23 23:36 00:39 02:00 Glucose POC Glucose 135 H 119 H 184 H 12/20/23 12/20/23 12/20/23 03:05 04:07 05:06 Glucose POC Glucose 161 H 197 H 192 H 12/20/23 12/20/23 12/20/23 05:38 06:09 07:03 Glucose 182 H POC Glucose 188 H 190 H 12/20/23 12/20/23 12/20/23 08:22 09:15 10:15 Glucose POC Glucose 263 H 240 H 200 H 12/20/23 12/20/23 12/20/23 11:19 12:27 13:18 Glucose POC Glucose 162 H 155 H 175 H OUTPATIENT ANTIDIABETIC REGIMEN: * n/a HbA1c: 15.4% (12/18/23) ASSESSMENT: : * Insulin drip was not transitioned off overnight. An additional 10 units of lantus was administered @ ~0000. Insulin infusion running ~4 units/hr today. * As patient is eating, drip transition based on insulin infusion rate and BSGs becomes more difficult. * Will administer another 35 units at lunchtime (45 total considering 10 units overnight) and stop the insulin infusion at dinner time. Plan discussed with RN. 12/19/23: * Insulin gtt continued overnight * Labs much improved today * Diet ordered with lunch, will plan to transition to SC basal/bolus regimen * General recommendation for insulin naive patients is 0.5-0.8 unit/kg/day (split 50/50 basal/bolus) * Will order basal insulin in line with this range today 12/18/23: * PA is a 58 year old male who reported to ED this morning after being contacted about abnormal glucose lab as an outpatient (>1000 mg/dL) * Baseline labs of glucose 1030 mg/dL, CO2 of 22 mmol/L, anion gap of 27, sodium of 142 mmol/L (corrected sodium of 157 mmol/L), VBG pH of 7.42 * Plasma osmolarity of 358 * IV fluids and insulin infusion initiated in ED * CDE consulted for new diagnosis of diabetes w/ need for insulin * Patient also presents in Afib w/ RVR, started on diltiazem gtt and heparin gtt (both mixed in dextrose) * Apparent COLEEN (SCr of 2.23 mg/dL), baseline reported as 1.7 mg/dL in H&P PLAN FOR INPATIENT GLYCEMIC CONTROL: * Insulin infusion with goal range of 110-180 mg/dL * Basal insulin * 10 units SC (administered overnight) * 35 units SC x 1 (0.36 unit/kg) in attempt to transition off insulin infusion. Infusion to stop at 1600. * Bolus insulin * NovoLog per insulin infusion protocol to cover CHO only through dinner. * Begin novolog achs and overnight checks tonight (CF:25, CR: 8).
--- NOTE | 2023-12-20 14:57 | Hospitalist Progress Note ---
Date of Service December 20, 2023 Assessment & Plan (1) Atrial fibrillation with rapid ventricular response: (2) New onset type 2 diabetes mellitus: (3) Elevated troponin I level: (4) Acute kidney injury: Plan: Patient is a 55-year-old very pleasant male with history of prediabetes, chronic back pain, presenting with fatigue x 2 weeks DKA/HHS Uncontrolled DM II--New diagnosis HbA1C: 15.4 Anion gap closed, metabolic acidosis resolved IV insulin transition to subcutaneous Insulin as able Glycemic pharmacist consulted--appreciate help special education paraeducator consulted as well Tolerating diabetic diet Monitor blood glucose levels Continue gentle IV fluids A-fib RVR Spontaneously converted to sinus Mild troponin elevation--likely demand ischemia secondary to above Weaned off of Cardizem drip Continue PO Cardizem 180mg daily On Eliquis for anticoagulation Appreciate cardiology input Will need outpatient sleep study Rate is controlled URI Suspected COVID-19 infection Home COVID test positive BioFire negative CXR:No acute cardiopulmonary findings. Pulmonary hygiene Normal procalcitonin Empirically started on doxycycline Antitussives as needed Acute kidney injury Baseline 1.7 per record Likely prerenal Cr>2.2>1.4>1.2>1.0 Renal USD:No hydronephrosis. Continue IV fluids Avoid nephrotoxic agents as able Monitor renal function Hypernatremia Likely due to significant dehydration Sodium levels improved to 143 Continue IV fluids Monitor sodium levels Blurry vision Likely secondary to hyperglycemia --CT head:No acute intracranial abnormality. No focal deficits on exam Will consider MRI brain if persistent Advised to follow-up with ophthalmology as outpatient Other Electrolyte abnormalities Mild hyperkalemia, hypercalcemia, hypermagnesemia Resolved Monitor Chronic back pain On oxycodone 15 mg every 4 hours Gabapentin 300 mg at bedtime Patient would like to wean off from pain meds Follows with pain management clinic DVT Px: Eliquis CODE STATUS Full code Admission and Anticipated Discharge Date Admission Date: December 18, 2023 Subjective Patient is seen and examined at bedside Less cough today States having some soreness of knees Also reports ongoing minimal blurry vision Discussed with family at bedside Denies any chest pain, dyspnea, nausea, vomiting, abdominal pain, diarrhea Review of Systems Review of Systems: All systems reviewed & are unremarkable except as noted in Subjective Physical Exam Physical Exam: Physical Exam: Vitals signs as noted above General Appearance:Moderately built and nourished, no apparent distress Head: normocephalic, Atraumatic Eyes: normal inspection, EOMI Neck: supple, Trachea midline Respiratory/Chest: Decreased breath sounds, CTA, No accessory muscle use Cardiovascular: S1, S2, No murmur Abdomen/GI:Soft, Non tender, Bowel sounds present Extremities/Musculoskeletal:normal inspection, 1+ B/L LE edema Neurologic/Psych:AAOX3, grossly no focal neurological deficits Skin: normal color, warm Results & Data Results & Data Vital Signs (Past 12 Hours) Vital Signs Temp Pulse Pulse Resp BP Pulse Ox O2 Del Method 12/20/23 14:31 37.5 C 74 17 124/75 93 Room Air 12/20/23 11:26 36.8 C 71 18 130/81 94 Room Air 12/20/23 09:20 64 12/20/23 07:04 37.2 C 77 20 131/68 94 Nasal Cannula 12/20/23 03:27 37.3 C 64 16 114/55 L 93 Nasal Cannula O2 Flow Rate 12/20/23 14:31 12/20/23 11:26 12/20/23 09:20 12/20/23 07:04 2 12/20/23 03:27 2 Laboratory Results Short CBC 12/20/23 Range/Units 05:38 WBC 13.10 H (4.8-10.8) K/ul Hgb 12.8 L (14.0-18.0) g/dl Hct 39.0 L (42.0-52.0) % Plt Count 77 L (130-400) K/uL BMP 12/19/23 12/20/23 19:14 05:38 Sodium 143 143 Potassium 3.4 L 3.7 Chloride 110 H 110 H Carbon Dioxide 26 27 BUN 28 H 23 Creatinine 1.10 1.08 Glucose 204 H 182 H Calcium 8.7 8.2 L Liver Function 12/20/23 Range/Units 05:38 Total Bilirubin 0.9 (0.2-1.0) mg/dl AST 22 (13-39) U/L ALT 24 (7-52) U/L Alkaline Phosphatase 67 (34-104) U/L Albumin 3.0 L (3.4-5.0) gm/dl
[2023-12-20] MEDS: DICLOFENAC SOD 1% GEL 100 GM TUBE EXT PRN (15:05)
[2023-12-20] MEDS: INSULIN ASPART PER UNIT CHARGE SC SCH ×2 (20:44→23:39)
[2023-12-20] MEDS: oxyCODONE HCL IR 5 MG TAB (IMMEDIATE RELEASE) PO PRN (22:16)
[2023-12-20] MEDS: ALUMINUM/MAGNESIUM/SIMETH (MAALOX MAX) 30 ML UDC PO STA (22:38)
[2023-12-20] MEDS: FAMOTIDINE 20MG IV PUSH 20 MG/5 ML SYR IV STA (23:40)
[2023-12-21 06:26] LABS: Hematocrit (blood only) 36.4 % (42.0-52.0); Hemoglobin 11.8 g/dl (14.0-18.0); Mean Corpuscular Hemoglobin 29.3 pg (25.0-34.0); Mean Corpuscular Hgb Conc 32.4 g/dL (32.0-36.0); Mean Corpuscular Volume 90.3 fL (80.0-100.0); Mean Platelet Volume 12.7 fL (9.4-12.4); Platelet Count 69 K/uL (130-400); RDW Coefficient of Variation 11.9 % (11.5-14.5); RDW Standard Deviation 39.4 fL (36.4-46.3); Red Blood Count 4.03 M/uL (4.70-6.10); White Blood Count 8.09 K/ul (4.8-10.8)
[2023-12-21 06:35] LABS: Albumin Globulin Ratio 1.3 (0.9-2); Albumin Level 2.8 gm/dl (3.4-5.0); BUN Creatinine Ratio 19.8 (10-20); Bilirubin,Total 0.7 mg/dl (0.2-1.0); Calcium 7.9 mg/dl (8.6-10.3); Creatinine Clr Calc Pharmacy 105.4 ml/min; Est GFR (African American) 108.8 ml/min; Est GFR (Non-African American) 93.9 ml/min; Globulin 2.2 gm/dl (2.5-4.0); Magnesium 1.7 mg/dl (1.7-2.4); Potassium 3.5 mmol/L (3.5-5.1)
[2023-12-21] MEDS: PANTOprazole 40 MG TAB PO SCH (08:38)
[2023-12-21] MEDS ORDERED: LANTUS PER UNIT CHARGE SC ONE (10:00)
[2023-12-21 10:31] VITALS: RESP 17; TEMP 98.8; O2SAT 94
[2023-12-21] MEDS: LANTUS PER UNIT CHARGE SC SCH (10:56)
[2023-12-21 11:40] VITALS: PULSE 74
--- NOTE | 2023-12-21 13:25 | Hospitalist Progress Note ---
Date of Service December 21, 2023 Assessment & Plan (1) Atrial fibrillation with rapid ventricular response: (2) New onset type 2 diabetes mellitus: (3) Elevated troponin I level: (4) Acute kidney injury: Plan: Patient is a 55-year-old very pleasant male with history of prediabetes, chronic back pain, presenting with fatigue x 2 weeks DKA/HHS Uncontrolled DM II--New diagnosis HbA1C: 15.4 Anion gap closed, metabolic acidosis resolved IV insulin transition to subcutaneous Insulin as able Glycemic pharmacist consulted--appreciate help nutrition educator consulted as well Tolerating diabetic diet Monitor blood glucose levels Received IV fluids Plan to be discharged home today A-fib RVR Spontaneously converted to sinus Mild troponin elevation--likely demand ischemia secondary to above Weaned off of Cardizem drip Continue PO Cardizem 180mg daily On Eliquis for anticoagulation Appreciate cardiology input Will need outpatient sleep study Rate is controlled Advised to follow-up with cardiology on discharge URI Suspected COVID-19 infection Home COVID test positive BioFire negative CXR:No acute cardiopulmonary findings. Pulmonary hygiene Normal procalcitonin Empirically started on doxycycline Antitussives as needed Clinically improving Acute kidney injury Baseline 1.7 per record Likely prerenal Cr>2.2>1.4>1.2>1.0>0.91 Renal USD:No hydronephrosis. Continue IV fluids Avoid nephrotoxic agents as able Monitor renal function Hypernatremia Likely due to significant dehydration Sodium levels improved to 140 Monitor sodium levels Resolved with IV fluids Blurry vision Likely secondary to hyperglycemia --CT head:No acute intracranial abnormality. No focal deficits on exam Blurry vision much improved Advised to follow-up with ophthalmology as outpatient Other Electrolyte abnormalities Mild hyperkalemia, hypercalcemia, hypermagnesemia Resolved Monitor Chronic back pain On oxycodone 15 mg every 4 hours Gabapentin 300 mg at bedtime Patient would like to wean off from pain meds Follows with pain management clinic DVT Px: Eliquis CODE STATUS Full code Disposition Home Admission and Anticipated Discharge Date Admission Date: December 18, 2023 Subjective Patient is seen and examined at bedside States feeling a lot better today Cough, generalized pain, blurry vision much improved No new complaints Saturating well on room air Discussed with patient's family at bedside Denies any chest pain, dyspnea, nausea, vomiting, abdominal pain, diarrhea Plan to be discharged home today Review of Systems Review of Systems: All systems reviewed & are unremarkable except as noted in Subjective Physical Exam Physical Exam: Physical Exam: Vitals signs as noted above General Appearance:Moderately built and nourished, no apparent distress Head: normocephalic, Atraumatic Eyes: normal inspection, EOMI Neck: supple, Trachea midline Respiratory/Chest: Decreased breath sounds, CTA, No accessory muscle use Cardiovascular: S1, S2, No murmur Abdomen/GI:Soft, Non tender, Bowel sounds present Extremities/Musculoskeletal:normal inspection, 1+ B/L LE edema Neurologic/Psych:AAOX3, grossly no focal neurological deficits Skin: normal color, warm Results & Data Results & Data Vital Signs (Past 12 Hours) Vital Signs Temp Pulse Pulse Resp BP Pulse Ox O2 Del Method 12/21/23 10:30 37.1 C 70 17 115/78 94 Room Air 12/21/23 09:22 74 12/21/23 07:37 80 18 131/94 96 Room Air 12/21/23 04:30 36.7 C 74 18 130/75 94 Room Air Laboratory Results Short CBC 12/21/23 Range/Units 06:00 WBC 8.09 (4.8-10.8) K/ul Hgb 11.8 L (14.0-18.0) g/dl Hct 36.4 L (42.0-52.0) % Plt Count 69 L (130-400) K/uL BMP 12/21/23 06:00 Sodium 140 Potassium 3.5 Chloride 110 H Carbon Dioxide 23 BUN 18 Creatinine 0.91 Glucose 176 H Calcium 7.9 L Liver Function 12/21/23 Range/Units 06:00 Total Bilirubin 0.7 (0.2-1.0) mg/dl AST 18 (13-39) U/L ALT 20 (7-52) U/L Alkaline Phosphatase 69 (34-104) U/L Albumin 2.8 L (3.4-5.0) gm/dl
[2023-12-21] MEDS: oxyCODONE HCL IR 5 MG TAB (IMMEDIATE RELEASE) PO PRN (14:01)
--- NOTE | 2023-12-21 14:01 | Discharge Summary ---
Date of Service December 21, 2023 Admission HPI Per Admitting Provider 55-year-old very pleasant male with history of prediabetes, chronic back pain, presenting with fatigue x 2 weeks Patient's history obtained from patient and family at the bedside supplementing information. He states that since 2 weeks ago while in [place], he has been having progressive fatigue, and frequent urination. 1 week ago, he started to have some mild cough and sputum production, and tested positive for COVID with a home test kit. No fevers or chills, abdominal pain, nausea vomiting, diarrhea. Last Wednesday, the patient return to the area but was having worsening of fatigue and polyuria. He saw his PCP yesterday and was called this morning about blood glucose level more than 1000. He was directed to go to the ER for further evaluation and treatment. At the ER, the patient was found to be in atrial fibrillation with a heart rate of 160s. Blood glucose was also in the 1000's. He was started on Cardizem drip and insulin drip. On exam, patient is seen sitting up in bed, appears tired but otherwise awake and alert, conversant, denies active shortness of breath, chest pain, palpitations. Does report feeling off balance when ambulating. No other new symptoms Admission Exam Per Admitting Provider General- oriented x 3, not in distress, speaks in sentences with no effort or accessory muscle use Head- atraumatic Eyes- PERRL, EOMI, anicteric ENT- oropharynx clear Neck- supple, no JVD, no adenopathy, no thyromegaly; carotids +2/2, no bruits appreciated Lungs- clear to auscultation bilaterally, no rales/wheezes Heart- Tachycardic, irregularly irregular rhythm; no murmur, no gallop, no rub appreciated Abdomen- normal bowel sounds, nondistended, soft, nontender, no masses or hepatosplenomegaly Extremities- no pretibial edema, no calf tenderness; peripheral pulses intact Neuro- alert, oriented x 3; CN 2-12 grossly intact; motor 5/5 bilaterally;sensation 100% on all extremities; no other gross focal neurologic deficits Skin- warm & dry Principal Diagnosis Diabetic ketoacidosis Uncontrolled diabetes mellitus Atrial fibrillation with rapid ventricular response Acute Bronchitis Acute kidney injury Hyponatremia Discharge Data Allergies Allergy/AdvReac Type Severity Reaction Status Date / Time No Known Allergies Allergy Unknown Verified 12/18/23 09:37 Consultations 12/18/23 09:45 ED Decision to Admit Stat 12/18/23 12:23 Consult Cardiology Routine Procedures Performed Laboratory Results WBC 8.09 K/ul (4.8-10.8) 12/21/23 06:00 RBC 4.03 M/uL (4.70-6.10) L 12/21/23 06:00 Hgb 11.8 g/dl (14.0-18.0) L 12/21/23 06:00 Hct 36.4 % (42.0-52.0) L 12/21/23 06:00 MCV 90.3 fL (80.0-100.0) 12/21/23 06:00 MCH 29.3 pg (25.0-34.0) 12/21/23 06:00 MCHC 32.4 g/dL (32.0-36.0) 12/21/23 06:00 RDW Std Deviation 39.4 fL (36.4-46.3) 12/21/23 06:00 RDW Coeff of Vahid 11.9 % (11.5-14.5) 12/21/23 06:00 Plt Count 69 K/uL (130-400) L 12/21/23 06:00 MPV 12.7 fL (9.4-12.4) H 12/21/23 06:00 Immature Gran % (Auto) 1.2 % 12/20/23 05:38 Neut % (Auto) 85.2 % 12/20/23 05:38 Lymph % (Auto) 8.7 % 12/20/23 05:38 Hand % (Auto) 4.0 % 12/20/23 05:38 Eos % (Auto) 0.7 % 12/20/23 05:38 Baso % (Auto) 0.2 % 12/20/23 05:38 Neut # (Auto) 11.16 K/uL (1.40-6.50) H 12/20/23 05:38 Lymph # (Auto) 1.14 K/uL (1.20-3.40) L 12/20/23 05:38 Hand # (Auto) 0.53 K/uL (0.11-0.59) 12/20/23 05:38 Eos # (Auto) 0.09 K/uL (0.00-0.50) 12/20/23 05:38 Baso # (Auto) 0.02 K/uL (0.00-0.20) 12/20/23 05:38 Immature Gran # (Auto) 0.16 K/uL (0.01-0.20) 12/20/23 05:38 Dohle Bodies 1+ 12/20/23 05:38 Platelet Estimate Decreased (Normal) L 12/20/23 05:38 Polychromasia 1+ 12/20/23 05:38 PT 10.5 Seconds (9.0-12.0) 12/18/23 07:50 INR 1.0 (0.9-1.1) 12/18/23 07:50 Heparin Anti-Xa, Unfract 0.18 IU/ml (0.3-0.7) L 12/18/23 15:16 VBG pH 7.42 (7.36-7.41) H 12/18/23 12:53 VBG pCO2 34 mmHg (38-50) L 12/18/23 12:53 VBG pO2 41 mmHg 12/18/23 12:53 VBG HCO3 22 mmol/L 12/18/23 12:53 VBG O2 Saturation 75.1 % 12/18/23 12:53 VBG Base Excess -1.7 mEq/L 12/18/23 12:53 Sodium 140 mmol/L (136-145) 12/21/23 06:00 Potassium 3.5 mmol/L (3.5-5.1) 12/21/23 06:00 Chloride 110 mmol/L (98-107) H 12/21/23 06:00 Carbon Dioxide 23 mmol/L (21-32) 12/21/23 06:00 Anion Gap 7 (3-11) 12/21/23 06:00 BUN 18 mg/dl (6-23) 12/21/23 06:00 Creatinine 0.91 mg/dl (0.6-1.4) 12/21/23 06:00 Est Cr Clr Drug Dosing 105.4 ml/min 12/21/23 06:00 Est GFR ( Amer) 108.8 ml/min 12/21/23 06:00 Est GFR (Non-Af Amer) 93.9 ml/min 12/21/23 06:00 BUN/Creatinine Ratio 19.8 (10-20) 12/21/23 06:00 Glucose 176 mg/dl (70-99(Fasting)) H 12/21/23 06:00 POC Glucose 235 mg/dl (70-99) H 12/21/23 10:53 Estimat Average Glucose 395 mg/dl 12/18/23 07:50 Hemoglobin A1c 15.4 % (4.5-5.6) H 12/18/23 07:50 Osmolality 358 mOsm/kg (280-300) H* 12/18/23 12:53 Lactate 2.1 mmol/L (0.4-2.0) H* 12/18/23 22:44 Calcium 7.9 mg/dl (8.6-10.3) L 12/21/23 06:00 Ionized Calcium 1.17 mmol/L (1.12-1.32) 12/19/23 06:50 Magnesium 1.7 mg/dl (1.7-2.4) 12/21/23 06:00 Total Bilirubin 0.7 mg/dl (0.2-1.0) 12/21/23 06:00 AST 18 U/L (13-39) 12/21/23 06:00 ALT 20 U/L (7-52) 12/21/23 06:00 Alkaline Phosphatase 69 U/L (34-104) 12/21/23 06:00 Troponin I High Sens 23.7 pg/ml (0-20) H 12/18/23 15:16 Total Protein 5.0 gm/dl (6.0-8.3) L 12/21/23 06:00 Albumin 2.8 gm/dl (3.4-5.0) L 12/21/23 06:00 Globulin 2.2 gm/dl (2.5-4.0) L 12/21/23 06:00 Albumin/Globulin Ratio 1.3 (0.9-2) 12/21/23 06:00 Triglycerides 186 mg/dl (0-150) H 12/19/23 06:50 Cholesterol 195 mg/dl (0-200) 12/19/23 06:50 LDL Cholesterol, Calc 120 mg/dl 12/19/23 06:50 VLDL Cholesterol, Calc 37 mg/dl (0-30) H 12/19/23 06:50 HDL Cholesterol 38 mg/dl 12/19/23 06:50 Cholesterol/HDL Ratio 5.1 (0-5) H 12/19/23 06:50 Procalcitonin 0.27 ng/ml (0-0.5) 12/20/23 05:38 TSH 1.119 uIu/ml (0.300-4.500) 12/18/23 07:50 Urine Color Yellow 12/18/23 07:55 Urine Appearance Clear (Clear) 12/18/23 07:55 Urine pH 5.0 (4.5-7.5) 12/18/23 07:55 Ur Specific [place] 1.037 (1.000-1.030) H 12/18/23 07:55 Urine Protein Negative (Negative) 12/18/23 07:55 Urine Glucose (UA) 3+ (Negative) H 12/18/23 07:55 Urine Ketones 1+ (Negative) H 12/18/23 07:55 Urine Blood Negative (Negative) 12/18/23 07:55 Urine Nitrite Negative (Negative) 12/18/23 07:55 Urine Bilirubin Negative (Negative) 12/18/23 07:55 Urine Urobilinogen Negative (Negative) 12/18/23 07:55 Ur Leukocyte Esterase Negative (Negative) 12/18/23 07:55 Adenovirus (PCR) Not Detected (NotDetected) 12/19/23 10:42 B. pertussis DNA (PCR) Not Detected (NotDetected) 12/19/23 10:42 B.parapertussis DNA PCR Not Detected (NotDetected) 12/19/23 10:42 C. pneumoniae DNA (PCR) Not Detected (NotDetected) 12/19/23 10:42 Coronavirus OC43 (PCR) Not Detected (NotDetected) 12/19/23 10:42 Coronavirus HKU1 (PCR) Not Detected (NotDetected) 12/19/23 10:42 Coronavirus 229E (PCR) Not Detected (NotDetected) 12/19/23 10:42 SARS-CoV-2 (PCR) Not Detected (NotDetected) 12/19/23 10:42 Coronavirus NL63 (PCR) Not Detected (NotDetected) 12/19/23 10:42 Human Metapneumovir PCR Not Detected (NotDetected) 12/19/23 10:42 Influenza Type A (PCR) Not Detected (NotDetected) 12/19/23 10:42 Influenza Type B (PCR) Not Detected (NotDetected) 12/19/23 10:42 M. pneumoniae (PCR) Not Detected (NotDetected) 12/19/23 10:42 Parainfluenza 1 (PCR) Not Detected (NotDetected) 12/19/23 10:42 Parainfluenza 2 (PCR) Not Detected (NotDetected) 12/19/23 10:42 Parainfluenza 3 (PCR) Not Detected (NotDetected) 12/19/23 10:42 Parainfluenza 4 (PCR) Not Detected (NotDetected) 12/19/23 10:42 RSV (PCR) Not Detected (NotDetected) 12/19/23 10:42 Entero/Rhino (PCR) Not Detected (NotDetected) 12/19/23 10:42 Impressions Renal Ultrasound 12/19/23 00:00 RENAL ULTRASOUND CLINICAL HISTORY: Acute kidney injury. COMPARISON STUDY: None. TECHNIQUE: Sonography of the kidneys and the urinary bladder was performed. FINDINGS: The right kidney measures 10.2 cm in maximal dimension and the left kidney measures 11.5 cm. There is no hydronephrosis. No renal mass or calculus is identified by sonography. Ureteral jets were not visualized. IMPRESSION: No hydronephrosis. ACT 112: Negative or not required by law. Electronically signed by: Mohamud Dubois M.D. 12/19/2023 7:23 AM Chest X-Ray 12/20/23 07:00 XR chest 1V portable HISTORY: 58 years-old Male Hypoxia acute hypoxia COMPARISON: 12/18/2023 TECHNIQUE: AP view of the chest FINDINGS: Cardiomediastinal and hilar silhouettes are unchanged. No pneumothorax, overt pulmonary edema or pleural effusion. Mild left basilar and retrocardiac densi ties. Left mid lung linear density. Bones appear grossly intact. IMPRESSION: Interval development of left mid lung atelectasis with additional left basilar opacities which may represent atelectasis versus pneumonia. ACT 112: Negative or not required by law. The above report was generated using voice recognition software. It may contain grammatical, syntax or spelling errors. Electronically signed by: Keenan Howe M.D. 12/20/2023 8:[address] 12/20/23 11:[address] DOSE: 703.85 mGy.cm HISTORY: Blurry vision TECHNIQUE: Multiaxial CT images of the head were performed without the use of intravenous contrast. Automated exposure control was utilized for this study. A dose lowering technique was utilized adhering to the principles of ALARA. Comparison: None. Findings: The paranasal sinuses and mastoid air cells are clear. The calvarium and skull base are intact. The ventricles and sulci are within normal limits. There is no mass, hematoma, midline shift, or acute infarct. Impression: No acute intracranial abnormality. ACT 112: Negative or not required by law. Electronically signed by: Remi George M.D. 12/20/2023 11:55 AM Ordered Studies 12/19/23 US renal/blad retro comp Routine 12/20/23 11:04 CT head/brain wo con Urgent Hospital Course (1) Atrial fibrillation with rapid ventricular response: (2) New onset type 2 diabetes mellitus: (3) Elevated troponin I level: (4) Acute kidney injury: Patient is a 55-year-old very pleasant male with history of prediabetes, chronic back pain, presenting with fatigue x 2 weeks DKA/HHS Uncontrolled DM II--New diagnosis HbA1C: 15.4 Anion gap closed, metabolic acidosis resolved IV insulin transition to subcutaneous Insulin as able Glycemic pharmacist consulted--appreciate help rail transportation tabeler consulted as well Tolerating diabetic diet Monitor blood glucose levels Received IV fluids Plan to be discharged home today A-fib RVR Spontaneously converted to sinus Mild troponin elevation--likely demand ischemia secondary to above Weaned off of Cardizem drip Continue PO Cardizem 180mg daily On Eliquis for anticoagulation Appreciate cardiology input Will need outpatient sleep study Rate is controlled Advised to follow-up with cardiology on discharge URI Suspected COVID-19 infection Home COVID test positive Bio[employer] negative CXR:No acute cardiopulmonary findings. Pulmonary hygiene Normal procalcitonin Empirically started on doxycycline Antitussives as needed Clinically improving Acute kidney injury Baseline 1.7 per record Likely prerenal Cr>2.2>1.4>1.2>1.0>0.91 Renal USD:No hydronephrosis. Continue IV fluids Avoid nephrotoxic agents as able Monitor renal function Hypernatremia Likely due to significant dehydration Sodium levels improved to 140 Monitor sodium levels Resolved with IV fluids Blurry vision Likely secondary to hyperglycemia --CT head:No acute intracranial abnormality. No focal deficits on exam Blurry vision much improved Advised to follow-up with ophthalmology as outpatient Other Electrolyte abnormalities Mild hyperkalemia, hypercalcemia, hypermagnesemia Resolved Monitor Chronic back pain On oxycodone 15 mg every 4 hours Gabapentin 300 mg at bedtime Patient would like to wean off from pain meds Follows with pain management clinic DVT Px: Eliquis CODE STATUS Full code Disposition Home Total Time Total Time Spent Total Time Spent (In Minutes): 52 minutes Discharge Plan Discharge Items Patient Disposition: Home - Self-Care Reason For Visit: HYPERGLYCEMIA, A FIB RVR Discharge Diagnosis: Diabetic ketoacidosis Uncontrolled diabetes mellitus Atrial fibrillation with rapid ventricular response Acute Bronchitis Acute kidney injury Hyponatremia Activity: Per Instructions section Exercise/Sports: Wait until after follow-up appointment Non-emergency contact: Primary Care Provider Call non-emergency contact if: you have any medication questions, your symptoms worsen, your pain is concerning for you and you have a fever Follow-up/Referrals: Lakisha Bonilla PA-C [Primary Care Provider] - (Date & Time 12/24/2023 11:40 AM Provider Jean-Claude Sanabria MD [facility] ) Diet: Carb Consistent or DM2 and Heart Healthy Addtl Attending Provider Instructions: Follow-up with your primary care physician Lakisha Bonilla PA-C in 1 week Follow-up with your ship joiner in 3 to 4 weeks -- Monitor your blood glucose levels regularly as advised. Discuss with your physician for further adjustment of diabetic medications as advised. --Complete the antibiotic course doxycycline as prescribed. --Start taking Lantus (Insulin) 20 units daily as advised. Further adjustment of medications per your Primary Care physician. Seek immediate medical attention if your symptoms reoccur or worsen Please take all medications as instructed on discharge list below. Please call if you have any questions or problems. You can reach a [facility] hospitalist on duty at [facility] 24 hours a day by calling [phone] Pending Studies at Discharge: No Stand-Alone Forms: My [facility] [employer], Smoking Cessation Medications and DC Order Prescriptions: New doxycycline hyclate 100 mg Capsule 100 mg PO BID Qty: 10 0RF Eliquis 5 mg Tablet 5 mg PO BID Qty: 60 1RF diltiazem HCl 180 mg Capsule,Extended Release 24hr 180 mg PO QAM Qty: 30 1RF pantoprazole 40 mg Tablet,Delayed Release (Dr/Ec) 40 mg PO QAM Qty: 7 0RF metformin 500 mg tablet extended release 24 hr 500 mg PO BID Qty: 60 0RF insulin glargine [Lantus Solostar U-100 Insulin] 100 unit/mL (3 mL) insulin pen 20 unit subcut DAILY Qty: 15 1RF (DME) pen needle, diabetic [Pen Needle] 32 gauge x 5/32" needle See Rx Instructions .Route Qty: 100 1RF Rx Instructions: As directed (Once Daily) (DME) blood-glucose meter Misc See Rx Instructions .Route Qty: 1 0RF Rx Instructions: As directed (DME) OneTouch Verio test strips Strip See Rx Instructions .Route Qty: 100 1RF Rx Instructions: As directed--check 3 times a day (DME) lancets 33 gauge misc See Rx Instructions .Route Qty: 100 1RF Rx Instructions: As directed--check 3 times a day Continued gabapentin 600 mg tablet 300 mg PO HS oxycodone 15 mg tablet 15 mg PO QID PRN (Reason: Pain) Discharge Orders: Discharge Order (Routine); Ordered 12/21/23 Ordered By: Benji Gasca Admission Data Admit Date/Time: 12/18/23 09:53 Attending Provider: Benji Gasca Admit Provider: Donte Mmis Primary Care Provider: Lakisha Bonilla Other Providers: Donte Mims; Jackelyn Finley
[2023-12-21 14:38] VITALS: BP 100/68
[2023-12-21] MEDS ORDERED: oxyCODONE HCL IR 5 MG TAB (IMMEDIATE RELEASE) PO PRN (18:00)
== END 2023-12-21 15:26 | disposition home or self-care (01) | DRG 638 ==
LOC: ED 07:12 → 2E 09:53 → SUATTDRO 09:53 → 2E 12:09
DX: I48.91 Unspecified atrial fibrillation; J20.9 Acute bronchitis, unspecified; I24.89 Other forms of acute ischemic heart disease; G89.29 Other chronic pain; M54.9 Dorsalgia, unspecified; N17.9 Acute kidney failure, unspecified; E11.10 Type 2 diabetes mellitus with ketoacidosis without coma; R03.0 Elevated blood-pressure reading, without diagnosis of hypertension; E83.41 Hypermagnesemia; Z79.899 Other long term (current) drug therapy; E83.52 Hypercalcemia; E87.0 Hyperosmolality and hypernatremia; E11.00 Type 2 diabetes mellitus with hyperosmolarity without nonketotic hyperglycemic-hyperosmolar coma (NKHHC)